=== PATIENT | female | born 1945 | race Asian ===

== ENCOUNTER 2019-10-13 15:59 | Inpatient (IN) | payer OTHER ==
--- NOTE | 2019-10-13 16:22 | PDOC ---
History of Present Illness <May Okeefe - Last Filed: 10/13/19 20:20> - History of Present Illness Initial Comments: HPI: 74yo F with PMH of GERD, osteoporosis, HTN, fatty liver, guillain-barre syndrome in 2016, chronic lumbar radiculopathy presenting with left-sided back pain radiating down her left leg. Patient presented to this ED yesterday with the same complaint. Denies traumatic episode. Has had this same pain for the past three years or so. Movement makes the pain worse. Patient states that she can walk, but is severely limited by pain despite taking medicines prescribed to her (medrol dose john, flexeril, naprosyn). Does not take tylenol due to a fatty liver. Pain was relieved with a recent acupuncture session, but has been so severe that she has trouble performing ADLs at home. Patient resides at home by herself. Denies saddle anesthesia, significant weight loss, history of cancer or IVDU, or urinary/fecal incontinence. No fevers, chills, chest pain, or shortness of breath. PCP: Dr. Ricardo Gilbert (not in our callbook) ROS: Constitutional: no fever, no chills HEENT: no throat pain, no dysphagia Cardiovascular: no chest pain, no palpitations Respiratory: no cough, no shortness of breath Gastrointestinal: no abdominal pain, no nausea Genitourinary: no dysuria, no hematuria Musculoskeletal: +back pain, +L. left pain Skin: no rash, no itching Neurologic: no headache, no weakness PE: General: Awake, alert, and fully oriented, in no acute distress Head: No signs of trauma Eyes: EOMI, sclera anicteric ENT: Moist mucus membranes Neck: Normal ROM, supple Lungs: Lungs clear, Normal breath sounds Cardio: Regular rhythm, S1 and S2 present Abdomen: Soft, nontender Extremities: Distal pulses present SKIN: Warm, Dry, normal turgor Neurologic: Cranial nerves II through XII intact. Normal speech, sensation, coordination. 5/5 strength in BUE, 5/5 strength in RLE, 3/5 strength in LLE likely limited by pain. Antalgic gait. Back: Location of pain in lumbar area, left of midline, no step-offs/deformities /fluctuance; no midline tenderness to palpation; no overlying wound or lesion; positive straight leg test on left, negative straight leg test on right ED Course/MDM: DDX including but not limited to: spinal cord or cauda equina compression, metastatic cancer, spinal epidural abscess, vertebral osteomyelitis, vertebral compression fracture, radiculopathy, spinal stenosis, osteoarthritis, nephrolithiasis, herpes zoster Patient is a bounceback from yesterday. CT on 10/12/2019 showing focal disc bulging with recommended MRI. No red flag back pain symptoms; low suspicion for spinal cord or cauda equina compression Patient lives by herself; she is a significant fall risk and unable to perform ADLs due to her pain CT as reported by radiology 10/12/2019: " EXAM#: TYPE/ EXAM: RESULT: [id number] CT/LUMBAR SPINE CT W/O CONTRAST CT scan lumbar spine performed in the axial plane with multiplanar reformatting without contrast HISTORY: Left sided pain COMPARISON: December 17, 2015 Focal disc bulging left aspect of L2-3 with narrowing of the left neural foramen l and left lateral recess. This was not delineated on prior study of 2015 No compression fracture No listhesis No osteolytic lesion identified No other levels of possible spinal stenosis IMPRESSION: Focal disc bulging left aspect of L2-3 with narrowing of the left neuroforamen and left lateral recess. Recommend MRI for confirmation Reported By: Stas Crouch MD 10/12/19 1238 " Per chart review, patient was discharged yesterday with flexeril, medrol dose john and orthopedics referral. 10/13/19 16:22 CBC WBC 10.1 K/mm3 (4.0-10.0) H 10/13/19 17:46 RBC 4.38 M/mm3 (3.60-5.2) 10/13/19 17:46 Hgb 13.7 GM/dL (10.7-15.3) 10/13/19 17:46 Hct 41.2 % (32.4-45.2) D 10/13/19 17:46 MCV 94.0 fl (80-96) 10/13/19 17:46 MCH 31.2 pg (25.7-33.7) 10/13/19 17:46 MCHC 33.2 g/dl (32.0-36.0) 10/13/19 17:46 RDW 14.2 % (11.6-15.6) 10/13/19 17:46 Plt Count 233 K/MM3 (134-434) D 10/13/19 17:46 MPV 10.7 fl (7.5-11.1) D 10/13/19 17:46 Absolute Neuts (auto) 8.2 K/mm3 (1.5-8.0) H 10/13/19 17:46 Neutrophils % 80.6 % (42.8-82.8) 10/13/19 17:46 Lymphocytes % 16.8 % (8-40) D 10/13/19 17:46 Monocytes % 1.2 % (3.8-10.2) L 10/13/19 17:46 Eosinophils % 0.1 % (0-4.5) D 10/13/19 17:46 Basophils % 1.3 % (0-2.0) 10/13/19 17:46 Nucleated RBC % 0 % (0-0) 10/13/19 17:46 Mild leukocytosis CMP Sodium 138 mmol/L (136-145) 10/13/19 17:46 Potassium 5.5 mmol/L (3.5-5.1) H 10/13/19 17:46 Chloride 106 mmol/L (98-107) 10/13/19 17:46 Carbon Dioxide 26 mmol/L (21-32) 10/13/19 17:46 Anion Gap 6 MMOL/L (8-16) L 10/13/19 17:46 BUN 17.5 mg/dL (7-18) 10/13/19 17:46 Creatinine 0.9 mg/dL (0.55-1.3) 10/13/19 17:46 Est GFR (CKD-EPI)AfAm 71.98 10/13/19 17:46 Est GFR (CKD-EPI)NonAf 62.11 10/13/19 17:46 Random Glucose 167 mg/dL (74-106) H 10/13/19 17:46 Calcium 8.4 mg/dL (8.5-10.1) L 10/13/19 17:46 Total Bilirubin 0.4 mg/dL (0.2-1) 10/13/19 17:46 AST 124 U/L (15-37) H 10/13/19 17:46 ALT 174 U/L (13-61) H 10/13/19 17:46 Alkaline Phosphatase 57 U/L (45-117) 10/13/19 17:46 Total Protein 8.2 g/dl (6.4-8.2) 10/13/19 17:46 Albumin 4.0 g/dl (3.4-5.0) 10/13/19 17:46 K is elevated at 5.5, but the value is mildly hemolyzed. No EKG changes noted Normal Cr Transaminitis present EKG: rate 88, Qtc 454, NSR Patient still in significant pain; 4mg morphine ordered Admission recommended as patient is in severe pain requiring acute inpatient management as indicated by pain unresponsive to non-opioid analgesia and nonpharmacologic treatment; oral, transdermal, submucosal route not appropriate or not sufficient; anticipated titration not appropriate for lower level of care [facility] team microblogged 10/13/19 19:21 Patient received morphine IV, and had a phlebitis reaction up her left arm. No itching, swelling, or throat closing sensation. 50mg diphenhydramine ordered. Discussed case with Dr. Patino who accepted patient for admission under Dr. Rebolledo 10/13/19 19:59 <Krissy Carranza - Last Filed: 10/13/19 20:50> - General Chief Complaint: Pain Stated Complaint: PAIN Time Seen by Provider: 10/13/19 16:20 Past History <May Okeefe - Last Filed: 10/13/19 20:20> - Past Medical History Anemia: No Asthma: No Cancer: No Cardiac Disorders: Yes CVA: No COPD: No CHF: No Dementia: No Diabetes: No GI Disorders: Yes (GERD) Disorders: No HTN: Yes Hypercholesterolemia: Yes Liver Disease: No Seizures: No Thyroid Disease: No - Psycho Social/Smoking Cessation Hx Smoking History: Never smoked Have you smoked in the past 12 months: No Hx Alcohol Use: No Drug/Substance Use Hx: No Substance Use Type: None Hx Substance Use Treatment: No <Krissy Carranza - Last Filed: 10/13/19 20:50> - Past Medical History Allergies/Adverse Reactions: Allergies Allergy/AdvReac Type Severity Reaction Status Date / Time morphine Allergy Verified 10/13/19 20:08 Home Medications: Ambulatory Orders Esomeprazole Mag Trihydrate [Nexium] 40 mg PO DAILY 02/11/14 Gabapentin 300 mg PO BID 02/11/14 Alprazolam 0.25 mg PO PRN 10/12/19 Calcium Carbonate/Vitamin D3 [Calcium 500 + Vit D 200 Caplet] 1 each PO DAILY Cyclobenzaprine HCl 5 mg PO HS #14 tablet 10/12/19 Donepezil HCl [Aricept -] 5 mg PO DAILY 10/12/19 Ibuprofen 400 mg PO PRN 10/12/19 Icosapent Ethyl [Vascepa] 1 gm PO DAILY 10/12/19 Lipase/Protease/Amylase [Aura Dr 36,000 Units Capsule] 1 cap PO DAILY 10/12/19 Magnesium Oxide 400 mg PO DAILY 10/12/19 Methylprednisolone [Medrol Dose John] 4 mg PO ASDIR #21 tablet 10/12/19 Naproxen 375 mg PO BID #20 tablet 10/12/19 *Physical Exam - Vital Signs Last Vital Signs Temp Pulse Resp BP Pulse Ox 98 F 81 18 150/68 96 10/13/19 16:06 10/13/19 19:38 10/13/19 16:06 10/13/19 19:38 10/13/19 19:38 <May Okeefe - Last Filed: 10/13/19 20:20> - Vital Signs Last Vital Signs Temp Pulse Resp BP Pulse Ox 98 F 95 H 18 159/83 99 10/13/19 16:06 10/13/19 16:06 10/13/19 16:06 10/13/19 16:06 10/13/19 16:06 <Krissy Carranza - Last Filed: 10/13/19 20:50> ED Treatment Course - LABORATORY CBC & Chemistry Diagram: 10/13/19 17:46 10/13/19 17:46 - ADDITIONAL ORDERS Additional order review: Laboratory Results 10/13/19 17:46 Sodium 138 Potassium 5.5 H Chloride 106 Carbon Dioxide 26 Anion Gap 6 L BUN 17.5 Creatinine 0.9 Est GFR (CKD-EPI)AfAm 71.98 Est GFR (CKD-EPI)NonAf 62.11 Random Glucose 167 H Calcium 8.4 L Total Bilirubin 0.4 AST 124 H ALT 174 H Alkaline Phosphatase 57 Total Protein 8.2 Albumin 4.0 10/13/19 17:46 RBC 4.38 MCV 94.0 MCHC 33.2 RDW 14.2 MPV 10.7 D Neutrophils % 80.6 Lymphocytes % 16.8 D Monocytes % 1.2 L Eosinophils % 0.1 D Basophils % 1.3 - Medications Given in the ED: ED Medications Discontinued Medications Generic Name Dose Route Start Last Admin Trade Name [place] PRN Reason Stop Dose Admin Diphenhydramine HCl 50 mg 10/13/19 19:58 10/13/19 20:00 Benadryl Injection - IVPUSH 10/13/19 19:59 50 mg ONCE ONE Administration Lidocaine 1 patch 10/13/19 17:12 10/13/19 17:44 Lidoderm Patch - TP 10/13/19 17:13 1 patch ONCE ONE Administration Morphine Sulfate 4 mg 10/13/19 19:22 10/13/19 19:55 Morphine Injection - IVPUSH 10/13/19 19:23 4 mg ONCE ONE Administration Oxycodone HCl 10 mg 10/13/19 17:11 10/13/19 17:45 Roxicodone - PO 10/13/19 17:12 10 mg ONCE ONE Administration <May Okeefe - Last Filed: 10/13/19 20:20> - LABORATORY CBC & Chemistry Diagram: 10/13/19 17:46 10/13/19 17:46 <Krissy Carranza - Last Filed: 10/13/19 20:50> Discharge <May Okeefe - Last Filed: 10/13/19 20:20> - Discharge Information Problems reviewed: Yes - Admission Yes <Krissy Carranza - Last Filed: 10/13/19 20:50> - Discharge Information Clinical Impression/Diagnosis: Intractable back pain Condition: Guarded
[2019-10-13] MEDS ORDERED: oxyCODONE HCL 5 MG TABLET PO ONE (17:11)
[2019-10-13] MEDS ORDERED: LIDOCAINE 5% TOPICAL PATCH TP ONE (17:12)
--- NOTE | 2019-10-13 17:23 | PDOC ---
Documentation entered by Elodia Arango SCRIBE, acting as scribe for May Okeefe MD. May Okeefe MD: This documentation has been prepared by the Conchita valle Sammi, SCRIBE, under my direction and personally reviewed by me in its entirety. I confirm that the documentation accurately reflects all work, treatment, procedures, and medical decision making performed by me. Attending Attestation - Resident Resident Name: Krissy Carranza - ED Attending Attestation I have performed the following: I have examined & evaluated the patient, The case was reviewed & discussed with the resident, I agree w/resident's findings & plan, Exceptions are as noted - HPI HPI: 10/13/19 17:19 10/13/19 17:22 74-year-old female returns emergency department department with continued left- sided back pain rating down her leg. She was here yesterday for the same complaint and at that time had a CT of her spinal lumbar that showed bulging disc at L3 and L4. She presents today with difficulty walking due to the pain - Physicial Exam PE: 10/13/19 17:41 Petite alert 74-year-old female presents with left back pain radiating down her leg Head normocephalic atraumatic Neck supple Lungs clear to auscultation bilaterally CVS regular rate and rhythm S1-S2 Abdomen flat, nontender Extremities no deformity, no erythema Musculoskeletal LEFT low back pain radiating down her leg neuro alert and conversant,moving her arms and legs but L leg raise is painful - Medical Decision Making 10/13/19 17:56 IMP: Lumbar radiculopathy 10/13/19 18:01 10/13/19 18:09 ct lumbar : focal disc bulging Left aspect of L2-3 w narrowing of the LEFT neuroforamina and left lateral recess 10/13/19 18:12 10/13/19 18:13 plan pain meds/reassess 10/13/19 18:44 Labs reviewed and CBC is essentially unremarkable Chemistries show potassium elevated 5.5, glucose elevated 167 - her AST is 124 , ALT = 174 10/13/19 20:11 pt unable to ambulate due to pain imp lumbar radiculopathy/intractable pain plan admit for pain mgmt
[2019-10-13] MEDS ORDERED: LIDOCAINE 5% TOPICAL PATCH ONE (17:25)
[2019-10-13] MEDS ORDERED: oxyCODONE HCL 5 MG TABLET ONE (17:27)
[2019-10-13 17:55] LABS: BASO % 1.3 % (0-2.0); EOS % 0.1 % (0-4.5); HEMATOCRIT 41.2 % (32.4-45.2); HEMOGLOBIN 13.7 GM/dL (10.7-15.3); LYMPH % 16.8 % (8-40); MCH 31.2 pg (25.7-33.7); MCHC 33.2 g/dl (32.0-36.0); MEAN PLT VOLUME 10.7 fl (7.5-11.1); MONO % 1.2 % (3.8-10.2); NEUT % 80.6 % (42.8-82.8); PLATELET COUNT 233 K/MM3 (134-434); RBC 4.38 M/mm3 (3.60-5.2); RDW 14.2 % (11.6-15.6); WHITE BLOOD COUNT 10.1 K/mm3 (4.0-10.0)
[2019-10-13 18:30] LABS: BILIRUBIN,TOTAL 0.4 mg/dL (0.2-1); BLOOD UREA NITROGEN 17.5 mg/dL (7-18); CALCIUM 8.4 mg/dL (8.5-10.1); CREATININE 0.9 mg/dL (0.55-1.3); TOT PROT 8.2 g/dl (6.4-8.2)
[2019-10-13 19:09] LABS: POTASSIUM 5.5 mmol/L (3.5-5.1)
[2019-10-13] MEDS ORDERED: morphine CARPU-JECT 4 MG/1 ML DISP.SYRIN IVPUSH ONE (19:22)
[2019-10-13] MEDS ORDERED: morphine SULFATE 4 MG/ML VIAL ONE (19:34)
--- NOTE | 2019-10-13 20:54 | HP ---
CHIEF COMPLAINT: acute on chronic back pain PCP: Dr Gilbert HISTORY OF PRESENT ILLNESS: 74 yo amharic speaking female F with PMH of chronic lumbar radiculopathy, Guillain-barre syndrome in 2016, Osteoporosis, HTN, Fatty Liver, and GERD presenting to the ED with sharp left sided back pain . She denies trauma and states that the pain started Monday while sitting on the bus. The pain is worse with motion. When asked about radiation patient denied however was motioning as if describing radiation when describing her pain. The patient is able to ambulate but is limited by her pain.The patient presented to the ED yesterday with the same symptoms and states that the medications prescribed to her are not helping (Medrol dose john, flexeril, naprosyn). Pain was relieved with a recent acupuncture session, but has been so severe that she has trouble performing ADLs at home. Patient lives alone. Denies saddle anesthesia, significant weight loss, history of cancer or IVDU, or urinary/fecal incontinence, fevers, chills, chest pain, or shortness of breath, nausea/ vomiting. ER course was notable for: (1)VSS, CBC with mild leukocytosis 10.1, CMP with AST 124, ALT 174 (2) morphine (with phlebitis on initial push. benadryl given after), lidocaine, oxy 10 (3)EKG NSR Recent Travel: denies PAST MEDICAL HISTORY: as above PAST SURGICAL HISTORY: none Social History: Smoking:denies Alcohol: denies Drugs: denies Allergies morphine Allergy (Verified 10/13/19 20:08) HOME MEDICATIONS: Home Medications Medication Instructions Recorded Esomeprazole Mag Trihydrate 40 mg PO DAILY 02/11/14 [Nexium] Gabapentin 300 mg PO BID 02/11/14 Alprazolam 0.25 mg PO PRN 10/12/19 Calcium Carbonate/Vitamin D3 1 each PO DAILY 10/12/19 [Calcium 500 + Vit D 200 Caplet] Cyclobenzaprine HCl 5 mg PO HS #14 tablet 10/12/19 Donepezil HCl [Aricept -] 5 mg PO DAILY 10/12/19 Ibuprofen 400 mg PO PRN 10/12/19 Icosapent Ethyl [Vascepa] 1 gm PO DAILY 10/12/19 Lipase/Protease/Amylase [Aura Campbell 1 cap PO DAILY 10/12/19 36,000 Units Capsule] Magnesium Oxide 400 mg PO DAILY 10/12/19 Methylprednisolone [Medrol Dose 4 mg PO ASDIR #21 tablet 10/12/19 John] Naproxen 375 mg PO BID #20 tablet 10/12/19 REVIEW OF SYSTEMS CONSTITUTIONAL: Absent: fever, chills, diaphoresis, generalized weakness, malaise, loss of appetite, weight change HEENT: Absent: rhinorrhea, nasal congestion, throat pain, throat swelling, difficulty swallowing, mouth swelling, ear pain, eye pain, visual changes CARDIOVASCULAR: Absent: chest pain, syncope, palpitations, irregular heart rate, lightheadedness , peripheral edema RESPIRATORY: Absent: cough, shortness of breath, dyspnea with exertion, orthopnea, wheezing, stridor, hemoptysis GASTROINTESTINAL: Absent: abdominal pain, abdominal distension, nausea, vomiting, diarrhea, constipation, melena, hematochezia GENITOURINARY: Absent: dysuria, frequency, urgency, hesitancy, hematuria, flank pain, genital pain MUSCULOSKELETAL: back pain Absent: myalgia, arthralgia, joint swelling,, neck pain SKIN: rash Absent: itching, pallor HEMATOLOGIC/IMMUNOLOGIC: Absent: easy bleeding, easy bruising, lymphadenopathy, frequent infections ENDOCRINE: Absent: unexplained weight gain, unexplained weight loss, heat intolerance, cold intolerance NEUROLOGIC: Absent: headache, focal weakness or paresthesias, dizziness, unsteady gait, seizure, mental status changes, bladder or bowel incontinence PSYCHIATRIC: Absent: anxiety, depression, suicidal or homicidal ideation, hallucinations. PHYSICAL EXAMINATION Vital Signs - 24 hr 10/13/19 10/13/19 10/13/19 16:06 19:38 20:51 Temperature 98 F 98.2 F Pulse Rate 95 H Pulse Rate [ 81 82 Left Radial] Respiratory 18 18 Rate Blood Pressure 159/83 Blood Pressure 150/68 146/70 [Right Arm] O2 Sat by Pulse 99 96 95 Oximetry (%) GENERAL: Awake, alert, and fully oriented, in mild distress. HEAD: Normal with no signs of trauma. EYES: Pupils equal, round and reactive to light, extraocular movements intact, sclera anicteric, conjunctiva clear. No lid lag. EARS, NOSE, THROAT: oropharynx clear without exudates. Moist mucous membranes. NECK: Normal range of motion, supple without lymphadenopathy, JVD, or masses. LUNGS: Breath sounds equal, clear to auscultation bilaterally. No wheezes, and no crackles. No accessory muscle use. HEART: Regular rate and rhythm, normal S1 and S2 without murmur, rub or gallop. ABDOMEN: Soft, nontender, not distended, normoactive bowel sounds, no guarding, no rebound, no masses. No hepatomegaly or splenomegaly. MUSCULOSKELETAL: Back: Location of pain in lumbar area, no step-offs/deformities /fluctuance; no midline tenderness to palpation; no overlying wound or lesion; positive straight leg test on left UPPER EXTREMITIES: 2+ pulses, warm, well-perfused. No cyanosis. No clubbing. No peripheral edema. LOWER EXTREMITIES: 2+ pulses, warm, well-perfused. No calf tenderness. No peripheral edema. NEUROLOGICAL: Cranial nerves II through XII intact. Normal speech, sensation, coordination. 5/5 strength in BUE, 5/5 strength in RLE, 4/5 strength in LLE likely limited by pain. Antalgic gait. PSYCHIATRIC: Cooperative. Good eye contact. Appropriate mood and affect. SKIN: phlebitis s/p morphine IVpush on left Laboratory Results - last 24 hr 10/13/19 10/13/19 17:46 17:46 WBC 10.1 H RBC 4.38 Hgb 13.7 Hct 41.2 D MCV 94.0 MCH 31.2 MCHC 33.2 RDW 14.2 Plt Count 233 D MPV 10.7 D Absolute Neuts (auto) 8.2 H Neutrophils % 80.6 Lymphocytes % 16.8 D Monocytes % 1.2 L Eosinophils % 0.1 D Basophils % 1.3 Nucleated RBC % 0 Sodium 138 Potassium 5.5 H Chloride 106 Carbon Dioxide 26 Anion Gap 6 L BUN 17.5 Creatinine 0.9 Est GFR (CKD-EPI)AfAm 71.98 Est GFR (CKD-EPI)NonAf 62.11 Random Glucose 167 H Calcium 8.4 L Total Bilirubin 0.4 AST 124 H ALT 174 H Alkaline Phosphatase 57 Total Protein 8.[address]/LUMBAR SPINE CT W/O CONTRAST CT scan lumbar spine performed in the axial plane with multiplanar reformatting without contrast HISTORY: Left sided pain COMPARISON: December 17, 2015 Focal disc bulging left aspect of L2-3 with narrowing of the left neural foramen l and left lateral recess. This was not delineated on prior study of 2016 No compression fracture No listhesis No osteolytic lesion identified No other levels of possible spinal stenosis IMPRESSION: Focal disc bulging left aspect of L2-3 with narrowing of the left neuroforamen and left lateral recess. Recommend MRI for confirmation Reported By : Stas Crouch MD 10/12/19 1238 " ASSESSMENT/PLAN: 74 yo amharic speaking female F with PMH of chronic lumbar radiculopathy, Guillain-barre syndrome in 2016, Osteoporosis, HTN, Fatty Liver, and GERD presenting to the ED with sharp left sided back pain Intractable back pain poss due to radiculopathy in the setting of PE findings ct findings above + straight leg raise test on the Left pain worse with ambulation Pt was discharged on flexeril, toradol will continue management with addition of lidocaine patch Neurosugery consult Dr Lorenzo MRI of the lumbar region w/and without contrast to rule out other pathology neurochecks Q4h monitor urine output type and screen , PT/INR in case neuro intervention resume gabapentin for neuropathy Phlebitis s/p morphine IV push on left arm, erythema along venous tracts,slight warmth no pain or tenderness 1 dose of benadryl given redness improved s/p benadryl monitor for increasing pain, tenderness, tightness Abnormal LFTs with hx of fatty liver chronic no clear source identified from previous work up concern for hemochromatosis was documented with outpatient w/u Pt didnt provide information on results MRCP, Abdomen CT, HIDA performed with findings but no clear explanation for abnormal LFTS hep B&C were negative HTN resume home meds once med rec Gerd resume home meds once med rec FEN no standing fluid. encourage po intake monitor lytes regular diet DVT SCDs admit to med-surge Visit type - Emergency Visit Emergency Visit: Yes ED Registration Date: 10/13/19 Care time: The patient presented to the Emergency Department on the above date and was hospitalized for further evaluation of their emergent condition. - New Patient This patient is new to me today: No - Critical Care Critical Care patient: No ATTENDING PHYSICIAN STATEMENT I saw and evaluated the patient. I reviewed the resident's note and discussed the case with the resident. I agree with the resident's findings and plan as documented. SUBJECTIVE: OBJECTIVE: ASSESSMENT AND PLAN:
[2019-10-13] MEDS ORDERED: NAPROXEN 375 MG TABLET PO SCH (22:00)
[2019-10-13] MEDS ORDERED: LIDOCAINE PATCH REMOVAL MC SCH (22:00)
[2019-10-13] MEDS ORDERED: CYCLOBENZAPRINE HCL 10 MG TABLET (FP) ONE (22:33)
[2019-10-13] MEDS ORDERED: NAPROXEN 500 MG TABLET ONE (22:34)
[2019-10-13] MEDS: CYCLOBENZAPRINE HCL 5 MG TABLET PO SCH (22:49)
[2019-10-14 00:02] VITALS: BMI 27.3
--- NOTE | 2019-10-14 00:48 | PN ---
Teaching Attending Note Name of Resident: Taylor Patino ATTENDING PHYSICIAN STATEMENT I saw and evaluated the patient. I reviewed the resident's note and discussed the case with the resident. I agree with the resident's findings and plan as documented. SUBJECTIVE: 74-year-old woman with a history of GERD, osteoporosis, hypertension, chronic lumbar radiculopathy presents with intractable back pain for 3 days. Pain is radiating down to her left leg and has been unbearable and patient is unable to ambulate or stand. Has been taking gabapentin which her PCP prescribed her and has not not had much relief. Denied any loss of sensation to her lower extremities, bowel incontinence, bladder incontinence. OBJECTIVE: Last Vital Signs Temp Pulse Resp BP Pulse Ox 97.9 F 74 20 154/88 97 10/13/19 23:57 10/13/19 23:57 10/14/19 00:29 10/13/19 23:57 10/14/19 00:29 GENERAL: Well developed, well nourished. Awake and alert. Appears to be in visible pain HEENT: Normocephalic, atraumatic. PERRLA, EOMI. No conjunctival pallor. Sclera are non- icteric. Moist mucous membranes. Oropharynx is clear. NECK: Supple. Full ROM. No JVD. Carotid pulses 2+ and symmetric, without bruits. No thyromegaly. No lymphadenopathy. CARDIOVASCULAR: Regular rate and rhythm. No murmurs, rubs, or gallops. Distal pulses are 2+ and symmetric. PULMONARY: No evidence of respiratory distress. Lungs clear to auscultation bilaterally. No wheezing, rales or rhonchi. ABDOMINAL: Soft. Non-tender. Non-distended. No rebound or guarding. No organomegaly. Normoactive bowel sounds. MUSCULOSKELETAL Normal range of motion at all joints. No bony deformities or tenderness. No CVA tenderness. EXTREMITIES: No cyanosis. No clubbing. No edema. No calf tenderness. SKIN: Warm and dry. Normal capillary refill. No rashes. No jaundice. NEUROLOGICAL: Positive left lower extremity straight leg raise test PSYCHIATRIC: Cooperative. Good eye contact. Appropriate mood and affect. Abnormal Lab Results 10/13/19 10/13/19 17:46 17:46 WBC 10.1 H Absolute Neuts (auto) 8.2 H Monocytes % 1.2 L Potassium 5.5 H Anion Gap 6 L Random Glucose 167 H Calcium 8.4 L AST 124 H ALT 174 H Imaging studies reviewed CT of the lumbar spine, CT without contrastfocal disc bulging left aspect of L2 -3 with narrowing of the left neuroforaminal and left lateral recess. Recommend MRI for confirmation. No compression fracture. No osteolytic lesion identified. ASSESSMENT AND PLAN: 74-year-old woman with intractable back pain and noted to have L2-3 focal disc bulging on left side, left-sided radiculopathy, sciatica. Admit to MedSur Pain control with Tylenol IV as neededpossible adverse reaction to morphine Bedrest MRI of the lumbar spine with and without contrast Neurosurgical evaluation for possible surgical intervention #GERD Protonix 40 mg p.o. daily #Hypertension Low-sodium diet Begin amlodipine 5 mg p.o. daily SCDs for DVT prophylaxis
[2019-10-14] MEDS ORDERED: ACETAMINOPHEN 1000 MG/100 ML VIAL (NON FORMULARY) IVPB PRN (03:50)
--- NOTE | 2019-10-14 07:56 | PN ---
Progress Note (short form) - Note Progress Note: NEUROSURGERY CONSULT DICTATED Chart reviewed Prior (2016) lumbar CT and 10-12-19 CT LS spine reviewed Pt examined h/o chronic lumbar radiculopathy, Guillain-barre syndrome, Osteoporosis, HTN, Fatty Liver, and GERD c/o sharp left sided back pain . She denies trauma/falls and pain started Monday while sitting on the bus. The pain is worse with motion. Medications prescribed 3 days ago did not help (Medrol dose mitchell, flexeril, naprosyn). Denies saddle anesthesia, significant weight loss, urinary/ bowel incontinence, fever, chill. No systemic malignancy. Interviewed with [facility]. PE: AF, VSS General- unremarkable CN- normal; Motor- L IP/Quad 4- pain limited; o/w 4+-5; Sensation- slight numbness L L3; DTR- 1+ K 5.5, LFT's mildly elevated CT LS- mild spondylosis throughout, sacralized L5 segment, L L2-3 foramenal disc protrusion with moderate stenosis (worse since 2015); broad-based L3-4 disc bulge with mild-moderate stenosis Increased L L2-3 formanenal HNP with L LBP and L3 radiculopathy PO medrol Neurontin PT Ls spine MRI If persistent pain consider EPSI
[2019-10-14] MEDS: KETOROLAC TROMETHAMINE 15 MG/ML VIAL IVPUSH PRN ×3 (08:12→21:13)
[2019-10-14] MEDS: LIDOCAINE PATCH REMOVAL MC SCH ×2 (08:46→21:09)
[2019-10-14 08:50] LABS: INR 0.97 (0.83-1.09); PROTHROMBIN TIME (PATIENT) 11.4 SEC (9.7-13.0)
[2019-10-14 08:53] LABS: ACTIVATED PTT 28.3 SECONDS (25.2-36.5)
[2019-10-14] MEDS: LIDOCAINE 5% TOPICAL PATCH TP SCH (09:13)
[2019-10-14] MEDS: GABAPENTIN 300 MG CAPSULE PO SCH ×2 (09:13→21:09)
[2019-10-14] MEDS: DONEPEZIL HCL 5 MG TABLET (FP) PO SCH (09:13)
--- NOTE | 2019-10-14 09:43 | EKG ---
Test Reason : Blood Pressure : / mmHG Vent. Rate : 088 BPM Atrial Rate : 088 BPM P-R Int : 150 ms QRS Dur : 078 ms QT Int : 376 ms P-R-T Axes : 067 023 047 degrees QTc Int : 454 ms NORMAL SINUS RHYTHM POSSIBLE LEFT ATRIAL ENLARGEMENT BORDERLINE ECG WHEN COMPARED WITH ECG OF 22-DEC-2015 18:46, NO SIGNIFICANT CHANGE WAS FOUND Confirmed by CADENCE CARBAJAL MD ([id number]) on 10/14/2019 9:42:41 AM Referred By: Confirmed By:CADENCE CARBAJAL MD
[2019-10-14 09:54] LABS: ALBUMIN 3.8 g/dl (3.4-5.0); BILIRUBIN,TOTAL 0.4 mg/dL (0.2-1); BLOOD UREA NITROGEN 24.8 mg/dL (7-18); CALCIUM 8.3 mg/dL (8.5-10.1); CREATININE 0.7 mg/dL (0.55-1.3); MAGNESIUM 2.5 mg/dL (1.8-2.4); PHOSPHOROUS 2.5 mg/dL (2.5-4.9); POTASSIUM 4.1 mmol/L (3.5-5.1); TOT PROT 7.3 g/dl (6.4-8.2)
[2019-10-14] MEDS ORDERED: ENOXAPARIN NA (PORCINE) 40 MG/0.4 ML DISP.SYRIN SQ SCH (10:00)
[2019-10-14] MEDS ORDERED: predniSONE 5 MG TABLET (UD) PO SCH (10:00)
[2019-10-14] MEDS: PANTOPRAZOLE 40 MG TABLET PO SCH (10:49)
[2019-10-14] MEDS ORDERED: PT OWN MED DRAWER 7, Y5N ONE (12:39)
[2019-10-14] MEDS: methylPREDNISolone 4 MG TABLET PO SCH ×4 (12:41→21:09)
[2019-10-14 13:14] LABS: EOS % 0.3 % (0-4.5); MCH 31.6 pg (25.7-33.7); MCHC 33.8 g/dl (32.0-36.0)
--- NOTE | 2019-10-14 13:14 | CONS ---
DATE OF CONSULTATION: 10/14/2019 REQUESTING PHYSICIAN: Dr. Patino W[employer] CONSERVATION SPECIALIST: Maldonado Melton MD, neurosurgery CHIEF COMPLAINT: Lower back pain, left L2-3 radiculopathy. HISTORY: Patient is a 74-year-old right-handed female with a history of hypertension, Guillain-[place] syndrome, chronic lower back pain, lumbar radiculopathy, osteoporosis, and hypertension as well as fatty liver and gastroesophageal reflux disease who complains of increasing left-sided lower back pain. Pain radiates down to her left hip and thigh. It started when she was sitting in a bus the other day. Pain is worse with walking and standing up. She could barely stand up straight. She was in the emergency room 2 days ago and was given Medrol Dosepak, Flexeril, and Naproxen. She denies any saddle anesthesia or loss of bowel or bladder control. She has no fevers or chills or any systemic malignancy. The patient was interviewed with the [facility] for translation. PAST MEDICAL HISTORY: Significant for fatty liver disease, Guillain-[place], lumbar radiculopathy, osteoporosis, hypertension, gastroesophageal reflux disease. CURRENT MEDICATIONS: Include Lidoderm patch, Neurontin, cyclobenzaprine, Toradol, Aricept, and Protonix. ALLERGIES: MORPHINE. SOCIAL HISTORY: She does not smoke or drink. She lives at home. She is French speaking. REVIEW OF SYSTEMS: Otherwise negative for major constitutional, head, neck, cardiovascular, pulmonary, gastrointestinal, genitourinary, endocrinological, neurological, or psychological problems except for the above. PHYSICAL EXAMINATION: General: She is awake and alert. Vital Signs: Temperature 98.1, blood pressure 139/77 with a pulse rate of 82, O2 saturation 97% on room air. HEENT: Shows her to be normocephalic, atraumatic, anicteric. Neck: Supple with no carotid bruits. Coronary: Demonstrates regular rhythm. Lungs: Clear bilaterally. Abdomen: Benign. Extremities: Show no signs of DVT. Neurologic: She is awake and alert. She is French speaking. Cranial nerve examination is intact 2-12. Motor examination shows 4+/5 to 5/5 with the exception of left iliopsoas and quadriceps, which are 4- limited by pain. Sensory examination demonstrates numbness in the left L3 distribution. Deep tendon reflexes are 1+ throughout. There is no pathological or long-tract sign. She has a positive straight leg raise on the left side about 40 degrees. She has left sciatic notch tenderness and left paraspinal muscle spasm. LABORATORY EXAMINATION: Shows a white blood cell count of 10.1, hemoglobin 13.7 , platelet count 233,000, INR 0.97, PT 28.3. Serum sodium 140, potassium 4.1, BUN 25, creatinine 0.7. A CT scan of the lumbar spine demonstrated multilevel lumbar mild degenerative disk disease and mild spondylosis. There is a broad-based L3-4 disk bulge with mild central stenosis and lateral recess narrowing. There is a left L2-3 foraminal disk protrusion with left L3 and L2 nerve root impingement as well as left lateral recess stenosis and foraminal stenosis, which is moderate in nature at least. The foraminal disk herniation is worse compared to a CT scan from 2016. IMPRESSION: 1. Increase left L2-3 foraminal disk protrusion with foraminal and lateral recess stenosis resulting in left L2-3 radiculopathy. 2. Fatty liver disease. 3. History of Guillain-[place] syndrome. 4. Hypertension. 5. Gastroesophageal reflux disease. RECOMMENDATIONS: Patient presents with recurrent lower back pain and left lower extremity radiculopathy. She complains of increasing pain since 3 days ago without any recent trauma or fall. She has slight weakness and numbness of the proximal left lower extremity. Because of her neurological symptoms, an MRI of the lumbar spine is recommended and has been ordered by report already. She was put on Neurontin earlier, and she will continue that. I also took the liberty of putting her on the Medrol p.o. to continue her prior Medrol Dosepak, which hopefully could help reduce her pain somewhat. If persistent pain, pain management evaluation with an epidural steroid injection could be helpful. Surgery is resolved for intractable pain despite medical treatment. The above was discussed with the patient with the use of a translation service on the phone. MALDONADO MELTON M.D. [id number] MTDD
[2019-10-14 13:16] LABS: BASO % 0.6 % (0-2.0); HEMATOCRIT 38.7 % (32.4-45.2); HEMOGLOBIN 13.1 GM/dL (10.7-15.3); LYMPH % 44.5 % (8-40); MEAN CELL VOLUME 93.3 fl (80-96); MEAN PLT VOLUME 9.4 fl (7.5-11.1); NEUT % 50.6 % (42.8-82.8); PLATELET COUNT 190 K/MM3 (134-434); RBC 4.14 M/mm3 (3.60-5.2)
[2019-10-14] MEDS: CALCIUM 500MG/VIT-D 200 UNITS COMBO TABLET (FP) PO SCH (15:14)
--- NOTE | 2019-10-14 16:33 | PN ---
Addendum entered and electronically signed by Oneal Santos, RESIDENT 10/14/19 16:50: Dr Stearns (ortho) consulted for the LS pain. Recs appreciated. Original Note: <Oneal Santos - Last Filed: 10/14/19 16:39> Physical Exam: SUBJECTIVE: Patient seen and examined at bedside. Pt in equisite pain 10/10. No fevers, chills. Toradol 15mg given. OBJECTIVE: Vital Signs Period Temp Pulse Resp BP Sys/Tadeo Pulse Ox Last 24 Hr 97.9 F-98.2 F 74-82 18-20 137-154/68-88 95-97 GENERAL: The patient is awake, alert in acute distress. HEAD: Normal with no signs of trauma. LUNGS: Breath sounds equal, clear to auscultation bilaterally, no wheezes, no crackles, no accessory muscle use. HEART: Regular rate and rhythm, S1, S2 without murmur, rub or gallop. ABDOMEN: Soft, nontender, nondistended, normoactive bowel sounds, no guarding, no rebound, no hepatosplenomegaly, no masses. EXTREMITIES: 2+ pulses, warm, well-perfused, no edema. NEUROLOGICAL:SLR positive Left leg, ttp left back, 2+pulses b/l, ROM impaired not due to weakness only to pain. Laboratory Results - last 24 hr 10/13/19 10/13/19 10/14/19 17:46 17:46 07:45 WBC 10.1 H 9.0 RBC 4.38 4.14 Hgb 13.7 13.1 Hct 41.2 D 38.7 MCV 94.0 93.3 MCH 31.2 31.6 MCHC 33.2 33.8 RDW 14.2 14.0 Plt Count 233 D 190 MPV 10.7 D 9.4 D Absolute Neuts (auto) 8.2 H 4.5 Neutrophils % 80.6 50.6 D Lymphocytes % 16.8 D 44.5 H D Monocytes % 1.2 L 4.0 D Eosinophils % 0.1 D 0.3 D Basophils % 1.3 0.6 Nucleated RBC % 0 0 PT with INR INR PTT (Actin FS) Sodium 138 Potassium 5.5 H Chloride 106 Carbon Dioxide 26 Anion Gap 6 L BUN 17.5 Creatinine 0.9 Est GFR (CKD-EPI)AfAm 71.98 Est GFR (CKD-EPI)NonAf 62.11 Random Glucose 167 H Calcium 8.4 L Phosphorus Magnesium Total Bilirubin 0.4 AST 124 H ALT 174 H Alkaline Phosphatase 57 Total Protein 8.2 Albumin 4.0 Blood Type Antibody Screen 10/14/19 10/14/19 10/14/19 07:45 07:45 07:45 WBC RBC Hgb Hct MCV MCH MCHC RDW Plt Count MPV Absolute Neuts (auto) Neutrophils % Lymphocytes % Monocytes % Eosinophils % Basophils % Nucleated RBC % PT with INR 11.40 INR 0.97 PTT (Actin FS) 28.3 Sodium 140 Potassium 4.1 Chloride 108 H Carbon Dioxide 27 Anion Gap 6 L BUN 24.8 H Creatinine 0.7 Est GFR (CKD-EPI)AfAm 97.54 Est GFR (CKD-EPI)NonAf 84.16 Random Glucose 87 Calcium 8.3 L Phosphorus 2.5 Magnesium 2.5 H Total Bilirubin 0.4 AST 120 H ALT 174 H Alkaline Phosphatase 54 Total Protein 7.3 Albumin 3.8 Blood Type B POSITIVE Antibody Screen Negative Active Medications Generic Name Dose Route Start Last Admin Trade Name Freq PRN Reason Stop Dose Admin Alprazolam 0.25 mg 10/14/19 15:15 Xanax - PO PRN PRN ANXIETY Calcium Carbonate/Cholecalciferol 1 tab 10/14/19 15:15 10/14/19 15:14 Os-Alexander 500+D - PO 1 tab DAILY MARY KATE Administration Cyclobenzaprine HCl 5 mg 10/13/19 22:00 10/13/19 22:49 Cyclobenzaprine Hcl PO 5 mg HS MARY KATE Administration Donepezil HCl 5 mg 10/14/19 10:00 10/14/19 09:13 Aricept - PO 5 mg DAILY MARY KATE Administration Gabapentin 300 mg 10/14/19 10:00 10/14/19 09:13 Neurontin - PO 300 mg BID MARY KATE Administration Ibuprofen 400 mg 10/14/19 15:15 Motrin - PO PRN MARY KATE Ketorolac Tromethamine 15 mg 10/14/19 06:12 10/14/19 14:54 Toradol Injection - IVPUSH 10/19/19 06:11 15 mg Q6H PRN Administration PAIN LEVEL 6-10 Lidocaine 1 patch 10/14/19 10:00 10/14/19 09:13 Lidoderm Patch - TP 1 patch DAILY MARY KATE Administration Magnesium Oxide 400 mg 10/15/19 10:00 Mag-Ox - PO DAILY [facility] Methylprednisolone 4 mg 10/14/19 10:30 10/14/19 14:55 Medrol - PO 4 mg QID MARY KATE Administration Miscellaneous 1 each 10/13/19 22:00 10/14/19 08:46 Lidoderm Patch Removal MC Not Given DAILY@2200 [facility] Non-Formulary Medication 1 gm 10/15/19 10:00 Icosapent Ethyl [Vascepa] PO DAILY [facility] Pancrelipase 1 cap 10/15/19 08:00 Creon 36,000 Units Capsule PO DAILY@0800 [facility] Pantoprazole Sodium 40 mg 10/14/19 10:30 10/14/19 10:49 Protonix - PO 40 mg DAILY MARY KATE Administration ASSESSMENT/PLAN: CT/LUMBAR SPINE CT W/O CONTRAST CT scan lumbar spine performed in the axial plane with multiplanar reformatting without contrast HISTORY: Left sided pain COMPARISON: December 17, 2015 Focal disc bulging left aspect of L2-3 with narrowing of the left neural foramen l and left lateral recess. This was not delineated on prior study of 2016 No compression fracture No listhesis No osteolytic lesion identified No other levels of possible spinal stenosis IMPRESSION: Focal disc bulging left aspect of L2-3 with narrowing of the left neuroforamen and left lateral recess. Recommend MRI for confirmation Reported By : Stas Crouch MD 10/12/19 1238 " ASSESSMENT/PLAN: 74 yo greenlandic speaking female F with PMH of chronic lumbar radiculopathy, Guillain-barre syndrome in 2016, Osteoporosis, HTN, Fatty Liver, and GERD presenting to the ED with sharp left sided back pain Intractable back pain poss due to radiculopathy vs prior GBS vs ITB syndrome - ct findings above + straight leg raise test on the Left - lidocaine patch - Neurosugery consult Dr Lorenzo not intervening surgically at this time. Steroids 4mg QID, 40protonix daily, and PT - will do epidural injection if pt is refractory pain mgmt. MRI of the lumbar region w/and without contrast to rule out other pathology PT eval was limited due to pain will have to wait until pain is controlled more for affective rehab. resume gabapentin for neuropathy Abnormal LFTs with hx of fatty liver chronic no clear source identified from previous work up HTN resume home meds Gerd resume home meds FEN no standing fluid. encourage po intake monitor lytes regular diet DVT 5K TID admit to med-surge Visit type - Emergency Visit Emergency Visit: Yes ED Registration Date: 10/13/19 Care time: The patient presented to the Emergency Department on the above date and was hospitalized for further evaluation of their emergent condition. - New Patient This patient is new to me today: Yes Date on this admission: 10/14/19 - Critical Care Critical Care patient: No - Discharge Referral Referred to [facility] Med P.C.: No ATTENDING PHYSICIAN STATEMENT I saw and evaluated the patient. I reviewed the resident's note and discussed the case with the resident. I agree with the resident's findings and plan as documented. SUBJECTIVE: OBJECTIVE: ASSESSMENT AND PLAN: <Roni Rush - Last Filed: 10/14/19 17:08> Physical Exam: Seen and examined, agree with attending note from overnight. In summation, the patient was examined by myself and the resident team. Actually has a negative bilateral straight leg raise with no radicular symptoms noted. 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 Orthopedic surgery will be consulted, I will adjust her pain control. There absolutely could be a component of low back pain implicated, and the CT results are absolutely noted, she has a distribution that would be atypical for a pure lumbar radiculopathy and she actually denies rishi back pain. Continue to monitor on the floor, full code ATTENDING PHYSICIAN STATEMENT I saw and evaluated the patient. I reviewed the resident's note and discussed the case with the resident. I agree with the resident's findings and plan as documented. SUBJECTIVE: OBJECTIVE: ASSESSMENT AND PLAN:
[2019-10-14] MEDS: CYCLOBENZAPRINE HCL 5 MG TABLET PO SCH (21:09)
[2019-10-15] MEDS: KETOROLAC TROMETHAMINE 15 MG/ML VIAL IVPUSH PRN (03:33)
--- NOTE | 2019-10-15 07:40 | PN ---
Progress Note (short form) - Note Progress Note: NEUROSURGERY Left sided back pain worse with motion. Denies saddle anesthesia, significant weight loss, urinary/bowel incontinence, fever, chill. No systemic malignancy. Pain severe despite medications PE: AF, VSS General- unremarkable CN- normal; Motor- L IP/Quad 4- pain limited; o/w 4+-5; Sensation- slight numbness L L3; DTR- 1+ K 5.5, LFT's mildly elevated CT LS- mild spondylosis throughout, sacralized L5 segment, L L2-3 foramenal disc protrusion with moderate stenosis (worse since 2016); broad-based L3-4 disc bulge with mild-moderate stenosis MRI- L T11-12 paracentral disc protrusion; L L2-3 paracentral HNP into neuroforamen with lateral recess and foramenal stenosis, R > L L3-4 disc bulge with mild-moderate stenosis; sacralized L5 segment Increased L L2-3 formanenal HNP with L LBP and L3 radiculopathy Trial of iv decadron Neurontin PT Consider pain management for EPSI
[2019-10-15] MEDS ORDERED: PT OWN MED DRAWER 7, Y5N ONE ×4 (08:58→15:14)
[2019-10-15] MEDS: DEXAMETHASONE SOD PHOSPHATE 4 MG/1 ML VIAL IVPUSH SCH ×3 (09:04→21:44)
[2019-10-15] MEDS: LIPASE/PROTEASE/AMYLASE 36,000 UNIT CAPSULE PO SCH (09:07)
[2019-10-15] MEDS ORDERED: ALPRAZolam 0.25 MG TABLET PO PRN (09:31)
[2019-10-15 09:32] LABS: BASO % 0.2 % (0-2.0); EOS % 0.1 % (0-4.5); HEMATOCRIT 41.8 % (32.4-45.2); HEMOGLOBIN 14.3 GM/dL (10.7-15.3); LYMPH % 33.8 % (8-40); MCH 31.7 pg (25.7-33.7); MCHC 34.1 g/dl (32.0-36.0); MEAN CELL VOLUME 93.1 fl (80-96); MEAN PLT VOLUME 9.1 fl (7.5-11.1); MONO % 2.2 % (3.8-10.2); NEUT % 63.7 % (42.8-82.8); PLATELET COUNT 212 K/MM3 (134-434); RBC 4.49 M/mm3 (3.60-5.2); WHITE BLOOD COUNT 10.2 K/mm3 (4.0-10.0)
[2019-10-15] MEDS: LIDOCAINE 5% TOPICAL PATCH TP SCH (09:37)
[2019-10-15] MEDS: CALCIUM 500MG/VIT-D 200 UNITS COMBO TABLET (FP) PO SCH (09:39)
[2019-10-15] MEDS: MAGNESIUM OXIDE 400 MG TABLET (FP) PO SCH (09:39)
[2019-10-15] MEDS: GABAPENTIN 300 MG CAPSULE PO SCH ×2 (09:39→21:44)
[2019-10-15] MEDS: DONEPEZIL HCL 5 MG TABLET (FP) PO SCH (09:39)
[2019-10-15] MEDS: PANTOPRAZOLE 40 MG TABLET PO SCH (09:39)
[2019-10-15] MEDS: OMEGA-3 ACID ETHYL ESTERS (FATTY-ACIDS) 1 GM CAPSULE (FP) PO SCH (09:40)
[2019-10-15] MEDS ORDERED: PATIENT'S OWN MEDICATION (NON-FORMULARY) (Icosapent Ethyl [Vascepa] 1 GM) PO SCH (10:00)
[2019-10-15 10:09] LABS: ALBUMIN 3.8 g/dl (3.4-5.0); BILIRUBIN,TOTAL 0.5 mg/dL (0.2-1); BLOOD UREA NITROGEN 35.4 mg/dL (7-18); CALCIUM 8.8 mg/dL (8.5-10.1); CREATININE 0.8 mg/dL (0.55-1.3); POTASSIUM 4.1 mmol/L (3.5-5.1); TOT PROT 7.9 g/dl (6.4-8.2)
[2019-10-15] MEDS ORDERED: methylPREDNISolone ACET (DEPO) 80 MG/1 ML VIAL IM ONE (10:17)
--- NOTE | 2019-10-15 10:17 | PN ---
Progress Note (short form) - Note Progress Note: Pt seen and examined. In addition to Dr Rosendo Lorenzo's findings: PE Her worst pain at this moment is at the lateral aspect of her left thigh, over the ITB. Good, painless ROM of the left hip, knee. Good resistance strength of knee extension, hip flexion. No pain with hip IR or ER, F or Ext Imp In addition to her LS pathology she has an acute, moderate to severe left ITB tendinitis. Rec After discussion with the family, she is consenting for a cortisone injection into the left ITB tendinitis. 80mg DepoMedrol and 1% Lidocaine ordered to the floor for injection.
[2019-10-15] MEDS: traMADol HCL 50 MG TABLET PO PRN (12:53)
--- NOTE | 2019-10-15 13:36 | PN ---
Physical Exam: SUBJECTIVE: Patient seen and examined today in AM. No acute events overnight. Pt still in equisite pain 10/10 in her left Lower extremity. No fever or chills etc. OBJECTIVE: Vital Signs Period Temp Pulse Resp BP Sys/Tadeo Pulse Ox Last 24 Hr 97.9 F-98.2 F 64-91 19-20 137-154/68-80 96 Physical Exam: GENERAL: The patient is awake, alert in acute distress. HEAD: Normal with no signs of trauma. LUNGS: Breath sounds equal, clear to auscultation bilaterally, no wheezes, no crackles, no accessory muscle use. HEART: Regular rate and rhythm, S1, S2 without murmur, rub or gallop. ABDOMEN: Soft, nontender, nondistended, normoactive bowel sounds, no guarding, no rebound. EXTREMITIES: 2+ pulses, warm, well-perfused, no edema. NEUROLOGICAL:SLR negative today, Left leg, ttp left back, 2+pulses b/l, ROM impaired not due to pain, but improved from yesterday slightly. Bernie test positive. Laboratory Results - last 24 hr 10/15/19 10/15/19 08:38 08:38 WBC 10.2 H RBC 4.49 Hgb 14.3 Hct 41.8 MCV 93.1 MCH 31.7 MCHC 34.1 RDW 14.0 Plt Count 212 MPV 9.1 Absolute Neuts (auto) 6.5 Neutrophils % 63.7 D Lymphocytes % 33.8 D Monocytes % 2.2 L Eosinophils % 0.1 Basophils % 0.2 Nucleated RBC % 0 Sodium 139 Potassium 4.1 Chloride 104 Carbon Dioxide 27 Anion Gap 8 BUN 35.4 H Creatinine 0.8 Est GFR (CKD-EPI)AfAm 83.00 Est GFR (CKD-EPI)NonAf 71.61 Random Glucose 142 H Calcium 8.8 Total Bilirubin 0.5 AST 93 H ALT 185 H Alkaline Phosphatase 64 Total Protein 7.9 Albumin 3.8 Active Medications Generic Name Dose Route Start Last Admin Trade Name Freq PRN Reason Stop Dose Admin Calcium Carbonate/Cholecalciferol 1 tab 10/14/19 15:15 10/15/19 09:39 Os-Alexander 500+D - PO 1 tab DAILY MARY KATE Administration Cyclobenzaprine HCl 5 mg 10/13/19 22:00 10/14/19 21:09 Cyclobenzaprine Hcl PO 5 mg HS MARY KATE Administration Dexamethasone Sodium Phosphate 4 mg 10/15/19 09:00 10/15/19 09:04 Decadron Injection - IVPUSH 4 mg Q6H-IV MARY KATE Administration Donepezil HCl 5 mg 10/14/19 10:00 10/15/19 09:39 Aricept - PO 5 mg DAILY MARY KATE Administration Gabapentin 300 mg 10/14/19 10:00 10/15/19 09:39 Neurontin - PO 300 mg BID MARY KATE Administration Ibuprofen 400 mg 10/15/19 09:30 Motrin - PO Q8H PRN PAIN LEVEL 1-5 Lidocaine 1 patch 10/14/19 10:00 10/15/19 09:37 Lidoderm Patch - TP 1 patch DAILY MARY KATE Administration Magnesium Oxide 400 mg 10/15/19 10:00 10/15/19 09:39 Mag-Ox - PO 400 mg DAILY MARY KATE Administration Miscellaneous 1 each 10/13/19 22:00 10/14/19 21:09 Lidoderm Patch Removal MC 1 each DAILY@2200 MARY KATE Administration Hrjat-5-Oelh Ethyl Esters 1 gm 10/15/19 10:00 10/15/19 09:40 Lovaza - PO 1 gm DAILY MARY KATE Administration Pancrelipase 1 cap 10/15/19 08:00 10/15/19 09:07 Aura Campbell 36,000 Units Capsule PO 1 cap DAILY@0800 MARY KATE Administration Pantoprazole Sodium 40 mg 10/14/19 10:30 10/15/19 09:39 Protonix - PO 40 mg DAILY MARY KATE Administration Tramadol HCl 50 mg 10/15/19 11:02 10/15/19 12:53 Ultram - PO 50 mg Q6H PRN Administration PAIN LEVEL 6-10 ASSESSMENT/PLAN: CT/LUMBAR SPINE CT W/O CONTRAST CT scan lumbar spine performed in the axial plane with multiplanar reformatting without contrast HISTORY: Left sided pain COMPARISON: December 17, 2015 Focal disc bulging left aspect of L2-3 with narrowing of the left neural foramen l and left lateral recess. This was not delineated on prior study of 2016 No compression fracture No listhesis No osteolytic lesion identified No other levels of possible spinal stenosis IMPRESSION: Focal disc bulging left aspect of L2-3 with narrowing of the left neuroforamen and left lateral recess. Recommend MRI for confirmation Reported By : Stas Crouch MD 10/12/19 1238 " ASSESSMENT/PLAN: 74 yo malay speaking female F with PMH of chronic lumbar radiculopathy, Guillain-barre syndrome in 2016, Osteoporosis, HTN, Fatty Liver, and GERD presenting to the ED with sharp left sided back pain Intractable back pain - 2/2 ITB syndrome vs acute on chronic radiculopathy - ct findings above - negative straight leg raise test on the Left - lidocaine patch in place - MRI of the lumbar region- L T11-12 paracentral disc protrusion; L L2-3 paracentral HNP into neuroforamen with lateral recess and foramenal stenosis, R > L L3-4 disc bulge with mild-moderate stenosis; sacralized L5 segment. Increased L L2-3 foramenal HNP with L LBP and L3 radiculopathy - Dr. Sanford performed injection into ITB Depomedrol 80mg and lido 1% will assess tm am if improved in symptoms. Ortho has signed off. - Neurosugery consult Dr Lorenzo not intervening surgically at this time. IV 4mg IVP decadron day 1 started, d/c po prednisone, continue 40protonix daily, neurontin, and PT for now. - Spoke with pain mgmt (Dr. Cade) who believes pt would benefit most from injection of steroids into L2-L3 spine for or pt can f/u as op. Hold AC 24 hrs prior. - PT eval was limited due to pain pt could only walk 5 steps - may uptitrate gabapentin from 300->600 TID as tolerated per PMR and Epidural can be done - started on tramadol but will attempt to stop at earliest possibility. Abnormal LFTs - hx of fatty liver chronic no clear source identified from previous work up - abdominal US ordered to assess for possible fatty liver - f/u with GI as o/p. HTN resume home meds Gerd resume home meds FEN no standing fluid. encourage po intake monitor lytes regular diet DVT 5K TID Visit type - Emergency Visit Emergency Visit: Yes ED Registration Date: 10/13/19 Care time: The patient presented to the Emergency Department on the above date and was hospitalized for further evaluation of their emergent condition. - New Patient This patient is new to me today: No - Critical Care Critical Care patient: No - Discharge Referral Referred to [facility] Med P.C.: No ATTENDING PHYSICIAN STATEMENT I saw and evaluated the patient. I reviewed the resident's note and discussed the case with the resident. I agree with the resident's findings and plan as documented. SUBJECTIVE: OBJECTIVE: ASSESSMENT AND PLAN:
[2019-10-15] MEDS ORDERED: IBUPROFEN 400 MG TABLET (FP) PO PRN (14:00)
[2019-10-15] MEDS ORDERED: LIDOCAINE HCL 1%, 10 MG/ML (20ML VIAL) ONE (15:15)
--- NOTE | 2019-10-15 15:26 | PN ---
Progress Note (short form) - Note Progress Note: After informed consent I injected the point of maximum tenderness over the distal left ITB with 80mg DepoMedrol and 1cc 1% Lidocaine. No complications. Tolerated well. Pt can be DC'd from an orthopedic pov Will follow PRN.
--- NOTE | 2019-10-15 16:44 | PN ---
Teaching Attending Note Name of Resident: Oneal Santos ATTENDING PHYSICIAN STATEMENT I saw and evaluated the patient. I reviewed the resident's note and discussed the case with the resident. I agree with the resident's findings and plan as documented. SUBJECTIVE: Complains of pain LLE. No fever/chills. No bladder/bowel incontinence. OBJECTIVE: Afebrile, Hemodynamically Stable. Last Vital Signs Temp Pulse Resp BP Pulse Ox 98.1 F 101 H 18 163/74 94 L 10/15/19 14:49 10/15/19 14:49 10/15/19 14:49 10/15/19 14:49 10/15/19 09:00 HEENT - Atramatic, Normocephalic. Heart - S1, S2, RRR Lungs - clear to auscultation Abdomen - Soft, non-tender. Bowel Sounds normal. Extremities - no edema, no calf tenderness. Neurovascularly intact. MS - Pain on flexion about hip. Laboratory Results - last 24 hr 10/15/19 10/15/19 08:38 08:38 WBC 10.2 H RBC 4.49 Hgb 14.3 Hct 41.8 MCV 93.1 MCH 31.7 MCHC 34.1 RDW 14.0 Plt Count 212 MPV 9.1 Absolute Neuts (auto) 6.5 Neutrophils % 63.7 D Lymphocytes % 33.8 D Monocytes % 2.2 L Eosinophils % 0.1 Basophils % 0.2 Nucleated RBC % 0 Sodium 139 Potassium 4.1 Chloride 104 Carbon Dioxide 27 Anion Gap 8 BUN 35.4 H Creatinine 0.8 Est GFR (CKD-EPI)AfAm 83.00 Est GFR (CKD-EPI)NonAf 71.61 Random Glucose 142 H Calcium 8.8 Total Bilirubin 0.5 AST 93 H ALT 185 H Alkaline Phosphatase 64 Total Protein 7.9 Albumin 3.8 Current Medications Generic Name Dose Route Start Last Admin Trade Name Freq PRN Reason Stop Dose Admin Calcium Carbonate/Cholecalciferol 1 tab 10/14/19 15:15 10/15/19 09:39 Os-Alexander 500+D - PO 1 tab DAILY MARY KATE Administration Cyclobenzaprine HCl 5 mg 10/13/19 22:00 10/14/19 21:09 Cyclobenzaprine Hcl PO 5 mg HS MARY KATE Administration Dexamethasone Sodium Phosphate 4 mg 10/15/19 09:00 10/15/19 15:24 Decadron Injection - IVPUSH 4 mg Q6H-IV MARY KATE Administration Donepezil HCl 5 mg 10/14/19 10:00 10/15/19 09:39 Aricept - PO 5 mg DAILY MARY KATE Administration Gabapentin 300 mg 10/14/19 10:00 10/15/19 09:39 Neurontin - PO 300 mg BID MARY KATE Administration Ibuprofen 400 mg 10/15/19 09:30 Motrin - PO Q8H PRN PAIN LEVEL 1-5 Lidocaine 1 patch 10/14/19 10:00 10/15/19 09:37 Lidoderm Patch - TP 1 patch DAILY MARY KATE Administration Magnesium Oxide 400 mg 10/15/19 10:00 10/15/19 09:39 Mag-Ox - PO 400 mg DAILY MARY KATE Administration Miscellaneous 1 each 10/13/19 22:00 10/14/19 21:09 Lidoderm Patch Removal MC 1 each DAILY@2200 MARY KATE Administration Fwffs-0-Wpvk Ethyl Esters 1 gm 10/15/19 10:00 10/15/19 09:40 Lovaza - PO 1 gm DAILY MARY KATE Administration Pancrelipase 1 cap 10/15/19 08:00 10/15/19 09:07 Aura Campbell 36,000 Units Capsule PO 1 cap DAILY@0800 MARY KATE Administration Pantoprazole Sodium 40 mg 10/14/19 10:30 10/15/19 09:39 Protonix - PO 40 mg DAILY MARY KATE Administration Tramadol HCl 50 mg 10/15/19 11:02 10/15/19 12:53 Ultram - PO 50 mg Q6H PRN Administration PAIN LEVEL 6-10 Home Medications Medication Instructions Recorded Esomeprazole Mag Trihydrate 40 mg PO DAILY 02/11/14 [Nexium] Gabapentin 100 mg PO BID 02/11/14 Alprazolam 0.25 mg PO PRN 10/12/19 Calcium Carbonate/Vitamin D3 1 each PO BID 10/12/19 [Calcium 500 + Vit D 200 Caplet] Cyclobenzaprine HCl 5 mg PO HS #14 tablet 10/12/19 Donepezil HCl [Aricept -] 5 mg PO DAILY 10/12/19 Ibuprofen 400 mg PO PRN 10/12/19 Icosapent Ethyl [Vascepa] 2 cap PO BID 10/12/19 Lipase/Protease/Amylase [Aura Campbell 1 cap PO TID 10/12/19 36,000 Units Capsule] Magnesium Oxide 400 mg PO DAILY 10/12/19 Methylprednisolone [Medrol Dose 4 mg PO ASDIR #21 tablet 10/12/19 John] Naproxen 375 mg PO BID #20 tablet 10/12/19 Ascorbate Calcium [Vitamin C] 500 mg PO DAILY 10/15/19 Atorvastatin Calcium 10 mg PO HS 10/15/19 Loratadine 10 mg PO DAILY PRN 10/15/19 Sertraline HCl 25 mg PO DAILY 10/15/19 Vitamin B Complex 1 cap PO DAILY 10/15/19 ASSESSMENT AND PLAN: 74 year old Uzbek speaking female with PMH of Dementia, Depression/Anxiety, chronic lumbar radiculopathy, Guillain-[place] Syndrome in 2016, Osteoporosis, HTN , Fatty Liver, and GERD, presented with left sided flank/lumbar pain, radiating down left LE. 1. 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 Increased L L2-3 formanenal HNP with L LBP and L3 radiculopathy s/p ITB Depomedrol injection by Ortho IV Steroid as per Neurosurgery. Neurontin GI Px. Trial of Tramadol for pain PT 2. Elevated Transaminases ? sec to Chronic Hep B Hep Bc Ab positive Abdominal US requested. GI follow up on discharge. 3. Dementia/Depression/Anxiety - resume Donepezil, Sertraline 4. GERD - Continue PPI. DVT Px - SCDs. Heparin held due to possibility of para-spinal injection
[2019-10-15] MEDS: CYCLOBENZAPRINE HCL 5 MG TABLET PO SCH (21:44)
[2019-10-15] MEDS: LIDOCAINE PATCH REMOVAL MC SCH (21:44)
[2019-10-15] MEDS ORDERED: ALPRAZolam 0.25 MG TABLET PO ONE (21:45)
--- NOTE | 2019-10-15 22:54 | CONSULT ---
Consult Consult Specialty:: Interventional Pain Management Reason for Consultation:: Left Low back and Leg Pain - History of Present Illness Chief Complaint: Left Low back and Leg Pain History of Present Illness: The legal researcher phone was utilized. Previous progress notes reviewed. The patient complains of low back and leg pain radiating to the knee. Described as burning and aching. Nothing makes it better. She had a similar epiisode several years ago where she was hospitalized for several days. Pain is rated 10/ 10. She has been evaluated by Neurosurgery, [place] [facility], and Pt. She recieved an ITBand injection today with some relief. She is interested in interventional pain management. Pt has a Left sided L2-L3 lateral disk herniation abbutting the nerve root. MRI Images were reviewed. 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: Yes: Other (paresthesias of hands and feet-progressive) Cardio/Vascular: Yes: Hyperlipdemia Gastrointestinal: Yes: GERD Infectious Disease: Yes: Herpes Zoster Rheumatology: Yes: Other (osteoporosis) - Past Surgical History Past Surgical History: Yes: Breast Biopsy (per pt, benign) - Alcohol/Substance Use Hx Alcohol Use: No - Smoking History Smoking history: Never smoked Have you smoked in the past 12 months: No - Social History Usual Living Arrangement: Assisted Living History of Recent Travel: No Home Medications - Allergies Allergies/Adverse Reactions: Allergies Allergy/AdvReac Type Severity Reaction Status Date / Time morphine AdvReac Verified 10/14/19 07:43 - Home Medications Home Medications: Ambulatory Orders Esomeprazole Mag Trihydrate [Nexium] 40 mg PO DAILY 02/11/14 Gabapentin 100 mg PO BID 02/11/14 Alprazolam 0.25 mg PO PRN 10/12/19 Calcium Carbonate/Vitamin D3 [Calcium 500 + Vit D 200 Caplet] 1 each PO BID 08/21 Cyclobenzaprine HCl 5 mg PO HS #14 tablet 10/12/19 Donepezil HCl [Aricept -] 5 mg PO DAILY 10/12/19 Ibuprofen 400 mg PO PRN 10/12/19 Icosapent Ethyl [Vascepa] 2 cap PO BID 10/12/19 Lipase/Protease/Amylase [Aura Dr 36,000 Units Capsule] 1 cap PO TID 10/12/19 Magnesium Oxide 400 mg PO DAILY 10/12/19 Methylprednisolone [Medrol Dose John] 4 mg PO ASDIR #21 tablet 10/12/19 Naproxen 375 mg PO BID #20 tablet 10/12/19 Ascorbate Calcium [Vitamin C] 500 mg PO DAILY 10/15/19 Atorvastatin Calcium 10 mg PO HS 10/15/19 Loratadine 10 mg PO DAILY PRN 10/15/19 Sertraline HCl 25 mg PO DAILY 10/15/19 Vitamin B Complex 1 cap PO DAILY 10/15/19 Review of Systems Findings/Remarks: Denies bowel bladdder incontinence or other red flag signs - Review of Systems Neurological: reports: Parasthesia (Left Leg to the thigh ocaisonally past the knee.) Physical Exam Vital Signs: Vital Signs Temperature 98.1 F 10/15/19 19:24 Pulse Rate 84 10/15/19 19:24 Respiratory Rate 18 10/15/19 14:49 Blood Pressure 139/65 10/15/19 19:24 O2 Sat by Pulse Oximetry (%) 94 L 10/15/19 09:00 Constitutional: Yes: Well Nourished Eyes: Yes: Conjunctiva Clear HENT: Yes: Atraumatic, Normocephalic Neck: Yes: Trachea Midline Cardiovascular: Yes: Regular Rate and Rhythm Renal/: No: WNL, Anuria, Bladder Distention, CVA Tenderness - Left, CVA Tenderness - Right, Garcia Present, Hematuria, Incontinence, Menses Present, Oliguria, Polyuria, , Scrotal Edema, Urethral Discharge, Vaginal Bleeding, Vaginal Discharge, Other Musculoskeletal: Yes: Back Pain, Other (TTP Over the Left Paraspinal Musculature NO TTP over the Left SIJ No TTP over the Left GTB) Neurological: Yes: Other (DTRS symetric 1+ SLR postive Left) Labs: CBC, BMP 10/15/19 08:38 10/15/19 08:38 Imaging - Results Cat Scan: Image Reviewed MRI: Image Reviewed Assessment/Plan The patients pain is likley secondary to her left L2-L3 Disc herniation causing her lumbar radiculopathy based on imaging, PE, and pt report. Recommendations: 1. Multimodal Pain Management includin. Increase gabapentin 300 MG TID and may uptitrate as tolerated slowly to 600 mg TID. Monitor for sedation dizziness etc. 3. If patient and family amenable would recommend Left L2 and L3 Transforaminal Epidural Steroid injection (TFESI). Depending on d/c planning this may be done while inpatient or outpatient. There is OR/Interventonal availability this 10/17 in the afternoon. Dsicussed the procedure wiht the patient at on license of [facility] using male infertility specialist phone. 4. Cont Lidoderm patch for topical analgesia. 5. Standing Tylenol 1000 Mg BID or TID. Monitor LFTs 5. Cont Physical therapy 6. Consider switiching from IV steroids to PO NSAIDS as tolerated per discretion of the primary team. 7. Hold Blood Thinners 24 hours prior to Injection. 8. Consider Discontinuing Tramadol and maximizing non-opiod analgesics/ interventions as above. Discussed the above plan with collection support specialist residents. Pt may follow up in my office after discharge. Please call [phone] to schedule an appointment for continue Interventional Pain Management care. Thank you for your consult. Glen Cade DO
[2019-10-16] MEDS: DEXAMETHASONE SOD PHOSPHATE 4 MG/1 ML VIAL IVPUSH SCH ×2 (02:48→09:19)
[2019-10-16 09:36] LABS: BASO % 0.4 % (0-2.0); HEMATOCRIT 40.6 % (32.4-45.2); HEMOGLOBIN 13.8 GM/dL (10.7-15.3); LYMPH % 15.4 % (8-40); MCH 31.6 pg (25.7-33.7); MCHC 33.9 g/dl (32.0-36.0); MEAN CELL VOLUME 93.1 fl (80-96); MEAN PLT VOLUME 9.2 fl (7.5-11.1); MONO % 1.8 % (3.8-10.2); NEUT % 82.4 % (42.8-82.8); PLATELET COUNT 201 K/MM3 (134-434); RBC 4.37 M/mm3 (3.60-5.2); WHITE BLOOD COUNT 12.3 K/mm3 (4.0-10.0)
[2019-10-16 10:06] LABS: ALBUMIN 3.6 g/dl (3.4-5.0); BILIRUBIN,TOTAL 0.4 mg/dL (0.2-1); CALCIUM 9.1 mg/dL (8.5-10.1); CREATININE 0.7 mg/dL (0.55-1.3); POTASSIUM 4.2 mmol/L (3.5-5.1); TOT PROT 7.6 g/dl (6.4-8.2)
[2019-10-16] MEDS ORDERED: predniSONE 5 MG TABLET (UD) PO SCH (10:30)
[2019-10-16] MEDS: OMEGA-3 ACID ETHYL ESTERS (FATTY-ACIDS) 1 GM CAPSULE (FP) PO SCH (10:50)
[2019-10-16] MEDS: MAGNESIUM OXIDE 400 MG TABLET (FP) PO SCH (10:50)
[2019-10-16] MEDS: CALCIUM 500MG/VIT-D 200 UNITS COMBO TABLET (FP) PO SCH (10:50)
[2019-10-16] MEDS: SERTRALINE HCL 25 MG TABLET (FP) PO SCH (10:50)
[2019-10-16] MEDS: GABAPENTIN 300 MG CAPSULE PO SCH ×2 (10:50→21:36)
[2019-10-16] MEDS: DONEPEZIL HCL 5 MG TABLET (FP) PO SCH (10:50)
[2019-10-16] MEDS: PANTOPRAZOLE 40 MG TABLET PO SCH (10:50)
[2019-10-16] MEDS: LIDOCAINE 5% TOPICAL PATCH TP SCH (10:51)
[2019-10-16] MEDS: LIPASE/PROTEASE/AMYLASE 36,000 UNIT CAPSULE PO SCH (10:52)
--- NOTE | 2019-10-16 10:52 | PN ---
Progress Note (short form) - Note Progress Note: Pt seen and examined. Pt still c/o LBP and left ITB tendinitis. Received a cortisone injection yesterday. Doing fine. Minimal relief so far. Relief expected after 3 days, full effect after 1 week. She can be DC'd from an orthopedic pov. F/U PRN as an out pt
[2019-10-16] MEDS: IBUPROFEN 400 MG TABLET (FP) PO PRN ×2 (11:31→22:05)
--- NOTE | 2019-10-16 13:39 | PN ---
Physical Exam: SUBJECTIVE: Patient seen and examined at bedside this AM. No acute events. Pt still c/o pain but improved slightly. Pt received xanax 0.25 which provided some acute relief. OBJECTIVE: Vital Signs Period Temp Pulse Resp BP Sys/Tadeo Pulse Ox Last 24 Hr 97.2 F-98.1 F 78-101 18-18 134-163/65-74 94 GENERAL: The patient is awake, alert, and fully oriented, in no acute distress. NECK: Trachea midline, full range of motion, supple. LUNGS: Breath sounds equal, clear to auscultation bilaterally, no wheezes, no crackles, no accessory muscle use. HEART: Regular rate and rhythm, S1, S2 without murmur, rub or gallop. ABDOMEN: Soft, nontender, nondistended, normoactive bowel sounds, no guarding, no rebound. EXTREMITIES: 2+ pulses, warm, well-perfused, no edema. NEUROLOGICAL: SLR negative, Left leg, ttp left back, 2+pulses b/l, ROM impaired due to pain, but improved from yesterday slightly. PSYCH: Normal mood, normal affect. SKIN: Warm, dry, no rashes or lesions noted Laboratory Results - last 24 hr 10/16/19 10/16/19 06:00 09:10 WBC 12.3 H RBC 4.37 Hgb 13.8 Hct 40.6 MCV 93.1 MCH 31.6 MCHC 33.9 RDW 14.0 Plt Count 201 MPV 9.2 Absolute Neuts (auto) 10.1 H Neutrophils % 82.4 D Lymphocytes % 15.4 D Monocytes % 1.8 L Eosinophils % 0.0 D Basophils % 0.4 Nucleated RBC % 0 Sodium 141 Potassium 4.2 Chloride 107 Carbon Dioxide 26 Anion Gap 7 L BUN 29.0 H Creatinine 0.7 Est GFR (CKD-EPI)AfAm 97.54 Est GFR (CKD-EPI)NonAf 84.16 Random Glucose 128 H Calcium 9.1 Total Bilirubin 0.4 AST 49 H ALT 143 H Alkaline Phosphatase 66 Total Protein 7.6 Albumin 3.6 Active Medications Generic Name Dose Route Start Last Admin Trade Name Freq PRN Reason Stop Dose Admin Alprazolam 0.25 mg 10/16/19 08:28 Xanax - PO DAILY PRN ANXIETY Atorvastatin Calcium 10 mg 10/16/19 22:00 Lipitor - PO HS MARY KATE Calcium Carbonate/Cholecalciferol 1 tab 10/14/19 15:15 10/16/19 10:50 Os-Alexander 500+D - PO 1 tab DAILY MARY KATE Administration Cyclobenzaprine HCl 5 mg 10/13/19 22:00 10/15/19 21:44 Cyclobenzaprine Hcl PO 5 mg HS MARY KATE Administration Donepezil HCl 5 mg 10/14/19 10:00 10/16/19 10:50 Aricept - PO 5 mg DAILY MARY KATE Administration Gabapentin 300 mg 10/14/19 10:00 10/16/19 10:50 Neurontin - PO 300 mg BID MARY KATE Administration Ibuprofen 400 mg 10/15/19 09:30 10/16/19 11:31 Motrin - PO 400 mg Q8H PRN Administration PAIN LEVEL 1-5 Lidocaine 1 patch 10/14/19 10:00 10/16/19 10:51 Lidoderm Patch - TP 1 patch DAILY MARY KATE Administration Magnesium Oxide 400 mg 10/15/19 10:00 10/16/19 10:50 Mag-Ox - PO 400 mg DAILY MARY KATE Administration Methylprednisolone 4 mg 10/16/19 11:00 Medrol - PO 10/18/19 23:59 BID MARY KATE Miscellaneous 1 each 10/13/19 22:00 10/15/19 21:44 Lidoderm Patch Removal MC 1 each DAILY@2200 MARY KATE Administration Qeuuq-0-With Ethyl Esters 1 gm 10/15/19 10:00 10/16/19 10:50 Lovaza - PO 1 gm DAILY MARY KATE Administration Pancrelipase 1 cap 10/15/19 08:00 10/16/19 10:52 Aura Campbell 36,000 Units Capsule PO 1 cap DAILY@0800 MARY KATE Administration Pantoprazole Sodium 40 mg 10/14/19 10:30 10/16/19 10:50 Protonix - PO 40 mg DAILY MARY KATE Administration Sertraline HCl 25 mg 10/16/19 10:00 10/16/19 10:50 Zoloft - PO 25 mg DAILY MARY KATE Administration Tramadol HCl 50 mg 10/15/19 11:02 10/15/19 12:53 Ultram - PO 50 mg Q6H PRN Administration PAIN LEVEL 6-10 ASSESSMENT/PLAN: Images: CT/LUMBAR SPINE CT W/O CONTRAST CT scan lumbar spine performed in the axial plane with multiplanar reformatting without contrast HISTORY: Left sided pain COMPARISON: December 17, 2015 Focal disc bulging left aspect of L2-3 with narrowing of the left neural foramen l and left lateral recess. This was not delineated on prior study of 2016 No compression fracture No listhesis No osteolytic lesion identified No other levels of possible spinal stenosis IMPRESSION: Focal disc bulging left aspect of L2-3 with narrowing of the left neuroforamen and left lateral recess. Recommend MRI for confirmation Reported By : Stas Crouch MD 10/12/19 1238 " - MRI of the lumbar region- L T11-12 paracentral disc protrusion; L L2-3 paracentral HNP into neuroforamen with lateral recess and foramenal stenosis, R > L L3-4 disc bulge with mild-moderate stenosis; sacralized L5 segment. Increased L L2-3 foramenal HNP with L LBP and L3 radiculopathy 74 yo portuguese speaking female F with PMH of chronic lumbar radiculopathy, Guillain-barre syndrome in 2016, Osteoporosis, HTN, Fatty Liver, and GERD presenting to the ED with sharp left sided back pain Intractable back pain - 2/2 ITB syndrome vs acute on chronic radiculopathy - ct findings above - negative straight leg raise test on the Left - lidocaine patch in place - Dr. Sanford consulted- s/p ITB Depomedrol 80mg injection, mild improvement in sx's will continue to observe for signs of improvement. Ortho follow up prn. - 4mg PO BID Methylprednisolone, continue 40protonix daily, neurontin, and PT for now. - (Dr. Cade) will undergo injection of steroids into L2-L3 spine for and pt can f/u as op. Holding AC 24 hrs prior as well as NPO after midnight. - PT eval - c/w tramadol. Abnormal LFTs - hx of fatty liver chronic no clear source identified from previous work up - abdominal US ordered to assess for possible fatty liver - f/u with GI as o/p. HTN resume home meds Gerd resume home meds FEN no standing fluid. encourage po intake monitor lytes regular diet DVT SCD DISPO: D/c to SNF tm after procedure tentatively if pt has improvement in sx's. Visit type - Emergency Visit Emergency Visit: Yes ED Registration Date: 10/13/19 Care time: The patient presented to the Emergency Department on the above date and was hospitalized for further evaluation of their emergent condition. - New Patient This patient is new to me today: No - Critical Care Critical Care patient: No - Discharge Referral Referred to [facility] No ATTENDING PHYSICIAN STATEMENT I saw and evaluated the patient. I reviewed the resident's note and discussed the case with the resident. I agree with the resident's findings and plan as documented. SUBJECTIVE: OBJECTIVE: ASSESSMENT AND PLAN:
--- NOTE | 2019-10-16 14:49 | PN ---
Teaching Attending Note Name of Resident: Rosibel Gonzalez ATTENDING PHYSICIAN STATEMENT I saw and evaluated the patient. I reviewed the resident's note and discussed the case with the resident. I agree with the resident's findings and plan as documented. SUBJECTIVE: Ongoing discomfort L back and LLE. No fever/chills. No bladder/ bowel incontinence. OBJECTIVE: Afebrile, Hemodynamically Stable. Last Vital Signs Temp Pulse Resp BP Pulse Ox 97.9 F 85 18 117/61 96 10/16/19 11:00 10/16/19 11:00 10/16/19 11:10/16/19 11:10/16/19 09:00 Heart - S1, S2, RRR Lungs - clear to auscultation Abdomen - Soft, non-tender. Bowel Sounds normal. Extremities - no edema, no calf tenderness. Neurovascularly intact. MS - Pain on flexion about hip. Laboratory Results - last 24 hr 10/16/19 10/16/19 06:00 09:10 WBC 12.3 H RBC 4.37 Hgb 13.8 Hct 40.6 MCV 93.1 MCH 31.6 MCHC 33.9 RDW 14.0 Plt Count 201 MPV 9.2 Absolute Neuts (auto) 10.1 H Neutrophils % 82.4 D Lymphocytes % 15.4 D Monocytes % 1.8 L Eosinophils % 0.0 D Basophils % 0.4 Nucleated RBC % 0 Sodium 141 Potassium 4.2 Chloride 107 Carbon Dioxide 26 Anion Gap 7 L BUN 29.0 H Creatinine 0.7 Est GFR (CKD-EPI)AfAm 97.54 Est GFR (CKD-EPI)NonAf 84.16 Random Glucose 128 H Calcium 9.1 Total Bilirubin 0.4 AST 49 H ALT 143 H Alkaline Phosphatase 66 Total Protein 7.6 Albumin 3.6 Current Medications Generic Name Dose Route Start Last Admin Trade Name Freq PRN Reason Stop Dose Admin Alprazolam 0.25 mg 10/16/19 08:28 Xanax - PO DAILY PRN ANXIETY Atorvastatin Calcium 10 mg 10/16/19 22:00 Lipitor - PO HS MARY KATE Calcium Carbonate/Cholecalciferol 1 tab 10/14/19 15:15 10/16/19 10:50 Os-Alexander 500+D - PO 1 tab DAILY MARY KATE Administration Cyclobenzaprine HCl 5 mg 10/13/19 22:00 10/15/19 21:44 Cyclobenzaprine Hcl PO 5 mg HS MARY KATE Administration Donepezil HCl 5 mg 10/14/19 10:00 10/16/19 10:50 Aricept - PO 5 mg DAILY MARY KATE Administration Gabapentin 300 mg 10/14/19 10:00 10/16/19 10:50 Neurontin - PO 300 mg BID MARY KATE Administration Ibuprofen 400 mg 10/15/19 09:30 10/16/19 11:31 Motrin - PO 400 mg Q8H PRN Administration PAIN LEVEL 1-5 Lidocaine 1 patch 10/14/19 10:00 10/16/19 10:51 Lidoderm Patch - TP 1 patch DAILY MARY KATE Administration Magnesium Oxide 400 mg 10/15/19 10:00 10/16/19 10:50 Mag-Ox - PO 400 mg DAILY MARY KATE Administration Methylprednisolone 4 mg 10/16/19 11:00 Medrol - PO 10/18/19 23:59 BID MARY KATE Miscellaneous 1 each 10/13/19 22:00 10/15/19 21:44 Lidoderm Patch Removal MC 1 each DAILY@2200 MARY KATE Administration Faxet-5-Getk Ethyl Esters 1 gm 10/15/19 10:00 10/16/19 10:50 Lovaza - PO 1 gm DAILY MARY KATE Administration Pancrelipase 1 cap 10/15/19 08:00 10/16/19 10:52 Aura Campbell 36,000 Units Capsule PO 1 cap DAILY@0800 MARY KATE Administration Pantoprazole Sodium 40 mg 10/14/19 10:30 10/16/19 10:50 Protonix - PO 40 mg DAILY MARY KATE Administration Sertraline HCl 25 mg 10/16/19 10:00 10/16/19 10:50 Zoloft - PO 25 mg DAILY MARY KATE Administration Tramadol HCl 50 mg 10/15/19 11:02 10/15/19 12:53 Ultram - PO 50 mg Q6H PRN Administration PAIN LEVEL 6-10 Home Medications Medication Instructions Recorded Esomeprazole Mag Trihydrate 40 mg PO DAILY 02/11/14 [Nexium] Gabapentin 100 mg PO BID 02/11/14 Alprazolam 0.25 mg PO PRN 10/12/19 Calcium Carbonate/Vitamin D3 1 each PO BID 10/12/19 [Calcium 500 + Vit D 200 Caplet] Cyclobenzaprine HCl 5 mg PO HS #14 tablet 10/12/19 Donepezil HCl [Aricept -] 5 mg PO DAILY 10/12/19 Ibuprofen 400 mg PO PRN 10/12/19 Icosapent Ethyl [Vascepa] 2 cap PO BID 10/12/19 Lipase/Protease/Amylase [Creon Dr 1 cap PO TID 10/12/19 36,000 Units Capsule] Magnesium Oxide 400 mg PO DAILY 10/12/19 Methylprednisolone [Medrol Dose 4 mg PO ASDIR #21 tablet 10/12/19 John] Naproxen 375 mg PO BID #20 tablet 10/12/19 Ascorbate Calcium [Vitamin C] 500 mg PO DAILY 10/15/19 Atorvastatin Calcium 10 mg PO HS 10/15/19 Loratadine 10 mg PO DAILY PRN 10/15/19 Sertraline HCl 25 mg PO DAILY 10/15/19 Vitamin B Complex 1 cap PO DAILY 10/15/19 ASSESSMENT AND PLAN: 74 year old Italian speaking female with PMH of Dementia, Depression/Anxiety, chronic lumbar radiculopathy, Guillain-[place] Syndrome in 2016, Osteoporosis, HTN , Fatty Liver, and GERD, presented with left sided flank/lumbar pain, radiating down left LE. 1. 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 Increased L L2-3 formanenal HNP with L LBP and L3 radiculopathy s/p ITB Depomedrol injection by Ortho IV Steroid as per Neurosurgery to transition to oral steroids. Seen by Pain Management - Gabapentin dose increased and patient for Transforaminal epidural steroid injection scheduled 10/17 GI Px. PT 2. Elevated Transaminases ? sec to Chronic Hep B Hep Bc Ab positive Abdominal US - fatty liver, mildly dilated CBD (chronic since 2015) GI follow up on discharge. 3. Dementia/Depression/Anxiety - resume Donepezil, Sertraline, Xanax PRN. 4. GERD - Continue PPI. DVT Px - SCDs. Heparin held due to epidural spinal injection.
[2019-10-16] MEDS: methylPREDNISolone 4 MG TABLET PO SCH ×2 (19:43→21:38)
[2019-10-16] MEDS: LIDOCAINE PATCH REMOVAL MC SCH (21:36)
[2019-10-16] MEDS: ALPRAZolam 0.25 MG TABLET PO PRN (21:36)
[2019-10-16] MEDS: CYCLOBENZAPRINE HCL 5 MG TABLET PO SCH (21:36)
[2019-10-16] MEDS ORDERED: ATORVASTATIN CA 10 MG TABLET (FP) PO SCH (22:00)
[2019-10-17 03:03] VITALS: TEMP 97.8
[2019-10-17] MEDS ORDERED: PT OWN MED DRAWER 7, Y5N ONE ×2 (06:47→10:49)
--- NOTE | 2019-10-17 07:53 | PN ---
Progress Note (short form) - Note Progress Note: NEUROSURGERY Left sided back pain worse with motion. Denies saddle anesthesia, significant weight loss, urinary/bowel incontinence, fever, chill. No systemic malignancy. Still with L ant and lat thigh pain. Pain management consult noted PE: AF, VSS General- unremarkable CN- normal; Motor- L IP/Quad 4- pain limited; o/w 4+-5; Sensation- slight numbness L L3; DTR- 1+ K 5.5, LFT's mildly elevated CT LS- mild spondylosis throughout, sacralized L5 segment, L L2-3 foramenal disc protrusion with moderate stenosis (worse since 2016); broad-based L3-4 disc bulge with mild-moderate stenosis MRI- L T11-12 paracentral disc protrusion; L L2-3 paracentral HNP into neuroforamen with lateral recess and foramenal stenosis, R > L L3-4 disc bulge with mild-moderate stenosis; sacralized L5 segment Increased L L2-3 formanenal HNP with L LBP and L3 radiculopathy On po medrol Neurontin PT For possible transforamenal EPSI per pain management
[2019-10-17 09:22] LABS: BASO % 0.7 % (0-2.0); EOS % 0.1 % (0-4.5); HEMOGLOBIN 13.8 GM/dL (10.7-15.3); LYMPH % 23.4 % (8-40); MCH 31.3 pg (25.7-33.7); MCHC 33.6 g/dl (32.0-36.0); MEAN CELL VOLUME 93.3 fl (80-96); MEAN PLT VOLUME 9.4 fl (7.5-11.1); MONO % 2.8 % (3.8-10.2); PLATELET COUNT 198 K/MM3 (134-434); RDW 13.7 % (11.6-15.6); WHITE BLOOD COUNT 10.4 K/mm3 (4.0-10.0)
[2019-10-17 09:48] LABS: ALBUMIN 3.4 g/dl (3.4-5.0); BILIRUBIN,TOTAL 0.5 mg/dL (0.2-1); BLOOD UREA NITROGEN 30.6 mg/dL (7-18); CALCIUM 8.5 mg/dL (8.5-10.1); CREATININE 0.7 mg/dL (0.55-1.3); POTASSIUM 4.3 mmol/L (3.5-5.1); TOT PROT 7.2 g/dl (6.4-8.2)
[2019-10-17 10:18] VITALS: BP 154/76; PULSE 67
[2019-10-17] MEDS: traMADol HCL 50 MG TABLET PO PRN ×2 (10:18→19:00)
[2019-10-17] MEDS: LIPASE/PROTEASE/AMYLASE 36,000 UNIT CAPSULE PO SCH (10:19)
[2019-10-17] MEDS: DONEPEZIL HCL 5 MG TABLET (FP) PO SCH (10:19)
[2019-10-17] MEDS: LIDOCAINE 5% TOPICAL PATCH TP SCH (10:19)
[2019-10-17] MEDS: SERTRALINE HCL 25 MG TABLET (FP) PO SCH (10:19)
[2019-10-17] MEDS: CALCIUM 500MG/VIT-D 200 UNITS COMBO TABLET (FP) PO SCH (10:19)
[2019-10-17] MEDS: PANTOPRAZOLE 40 MG TABLET PO SCH (10:19)
[2019-10-17] MEDS: MAGNESIUM OXIDE 400 MG TABLET (FP) PO SCH (10:19)
[2019-10-17] MEDS: GABAPENTIN 300 MG CAPSULE PO SCH (10:19)
[2019-10-17] MEDS: ALPRAZolam 0.25 MG TABLET PO PRN (10:19)
[2019-10-17] MEDS: OMEGA-3 ACID ETHYL ESTERS (FATTY-ACIDS) 1 GM CAPSULE (FP) PO SCH (10:20)
[2019-10-17] MEDS: methylPREDNISolone 4 MG TABLET PO SCH (10:20)
--- NOTE | 2019-10-17 12:22 | PN ---
Teaching Attending Note Name of Resident: Oneal Santos ATTENDING PHYSICIAN STATEMENT I saw and evaluated the patient. I reviewed the resident's note and discussed the case with the resident. I agree with the resident's findings and plan as documented. SUBJECTIVE: Ongoing discomfort LLE. No fever/chills. No bladder/bowel incontinence. OBJECTIVE: Afebrile, Hemodynamically Stable. Pain seems to be improved along with ROM. Last Vital Signs Temp Pulse Resp BP Pulse Ox 97.8 F 67 17 154/76 96 10/17/19 10:16 10/17/19 10:16 10/17/19 10:16 10/17/19 10:16 10/16/19 21:00 Heart - S1, S2, RRR Lungs - clear to auscultation Abdomen - Soft, non-tender. Bowel Sounds normal. Extremities - no edema, no calf tenderness. Neurovascularly intact. MS - More ROM and less pain on flexion LLE. Laboratory Results - last 24 hr 10/17/19 10/17/19 08:55 08:55 WBC 10.4 H RBC 4.40 Hgb 13.8 Hct 41.0 MCV 93.3 MCH 31.3 MCHC 33.6 RDW 13.7 Plt Count 198 MPV 9.4 Absolute Neuts (auto) 7.6 Neutrophils % 73.0 Lymphocytes % 23.4 D Monocytes % 2.8 L Eosinophils % 0.1 D Basophils % 0.7 Nucleated RBC % 0 Sodium 139 Potassium 4.3 Chloride 106 Carbon Dioxide 28 Anion Gap 5 L BUN 30.6 H Creatinine 0.7 Est GFR (CKD-EPI)AfAm 97.54 Est GFR (CKD-EPI)NonAf 84.16 Random Glucose 113 H Calcium 8.5 Total Bilirubin 0.5 AST 47 H ALT 126 H Alkaline Phosphatase 62 Total Protein 7.2 Albumin 3.4 Current Medications Generic Name Dose Route Start Last Admin Trade Name Freq PRN Reason Stop Dose Admin Alprazolam 0.25 mg 10/16/19 08:28 10/17/19 10:19 Xanax - PO 0.25 mg DAILY PRN Administration ANXIETY Atorvastatin Calcium 10 mg 10/16/19 22:00 10/16/19 21:36 Lipitor - PO 10 mg HS MARY KATE Administration Calcium Carbonate/Cholecalciferol 1 tab 10/14/19 15:15 10/17/19 10:19 Os-Alexander 500+D - PO 1 tab DAILY MARY KATE Administration Cyclobenzaprine HCl 5 mg 10/13/19 22:00 10/16/19 21:36 Cyclobenzaprine Hcl PO 5 mg HS MARY KATE Administration Donepezil HCl 5 mg 10/14/19 10:00 10/17/19 10:19 Aricept - PO 5 mg DAILY MARY KATE Administration Gabapentin 300 mg 10/14/19 10:00 10/17/19 10:19 Neurontin - PO 300 mg BID MARY KATE Administration Ibuprofen 400 mg 10/15/19 09:30 10/16/19 22:05 Motrin - PO 400 mg Q8H PRN Administration PAIN LEVEL 1-5 Lidocaine 1 patch 10/14/19 10:00 10/17/19 10:19 Lidoderm Patch - TP 1 patch DAILY MARY KATE Administration Magnesium Oxide 400 mg 10/15/19 10:00 10/17/19 10:19 Mag-Ox - PO 400 mg DAILY MARY KATE Administration Methylprednisolone 4 mg 10/16/19 11:00 10/17/19 10:20 Medrol - PO 10/18/19 23:59 4 mg BID MARY KATE Administration Miscellaneous 1 each 10/13/19 22:00 10/16/19 21:36 Lidoderm Patch Removal MC 1 each DAILY@2200 MARY KATE Administration Ctuzt-3-Hufi Ethyl Esters 1 gm 10/15/19 10:00 10/17/19 10:20 Lovaza - PO 1 gm DAILY MARY KATE Administration Pancrelipase 1 cap 10/15/19 08:00 10/17/19 10:19 Aura Campbell 36,000 Units Capsule PO Not Given DAILY@0800 MARY KATE Pantoprazole Sodium 40 mg 10/14/19 10:30 10/17/19 10:19 Protonix - PO 40 mg DAILY MARY KATE Administration Sertraline HCl 25 mg 10/16/19 10:00 10/17/19 10:19 Zoloft - PO 25 mg DAILY MARY KATE Administration Tramadol HCl 50 mg 10/15/19 11:02 10/17/19 10:18 Ultram - PO 50 mg Q6H PRN Administration PAIN LEVEL 6-10 Home Medications Medication Instructions Recorded Esomeprazole Mag Trihydrate 40 mg PO DAILY 02/11/14 [Nexium] Gabapentin 100 mg PO BID 02/11/14 Alprazolam 0.25 mg PO PRN 10/12/19 Calcium Carbonate/Vitamin D3 1 each PO BID 10/12/19 [Calcium 500-Vit D3 200 Caplet] Cyclobenzaprine HCl 5 mg PO HS #14 tablet 10/12/19 Donepezil HCl [Aricept -] 5 mg PO DAILY 10/12/19 Ibuprofen 400 mg PO PRN 10/12/19 Icosapent Ethyl [Vascepa] 2 cap PO BID 10/12/19 Lipase/Protease/Amylase [Creon Dr 1 cap PO TID 10/12/19 36,000 Units Capsule] Magnesium Oxide 400 mg PO DAILY 10/12/19 Naproxen 375 mg PO BID #20 tablet 10/12/19 Ascorbate Calcium [Vitamin C] 500 mg PO DAILY 10/15/19 Atorvastatin Calcium 10 mg PO HS 10/15/19 Sertraline HCl 25 mg PO DAILY 10/15/19 Vitamin B Complex 1 cap PO DAILY 10/15/19 Lidocaine 5% Patch [Lidoderm -] 1 patch TP DAILY patch 10/17/19 Methylprednisolone [Medrol -] See Taper PO ASDIR #6 tablet 10/17/19 [place]-3 Acid Ethyl Esters [Lovaza 1 gm PO DAILY cap 10/17/19 -] ASSESSMENT AND PLAN: 74 year old Turkmen speaking female with PMH of Dementia, Depression/Anxiety, chronic lumbar radiculopathy, Guillain-Canton Syndrome in 2016, Osteoporosis, HTN , Fatty Liver, and GERD, presented with left sided flank/lumbar pain, radiating down left LE. 1. 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 Increased L L2-3 formanenal HNP with L LBP and L3 radiculopathy s/p ITB Depomedrol injection by Ortho Initially received IV Steroid - now on oral tapering course of steroid as per NeuroSx. Seen by Pain Management - Gabapentin dose increased and patient scheduled for Transforaminal epidural steroid injection 10/17 GI Px. PT Medically optimized for transfer to SNF/Rehab after [facility] for ongoing PT/Rehab. 2. Elevated Transaminases ? sec to Chronic Hep B Hep Bc Ab positive Abdominal US - fatty liver, mildly dilated CBD (chronic since 2016) GI follow up on discharge. 3. Dementia/Depression/Anxiety - resume Donepezil, Sertraline, Xanax PRN. 4. GERD - Continue PPI. DVT Px - SCDs. Heparin held due to epidural spinal injection. Stable for DC after injection by pain management.
[2019-10-17] MEDS ORDERED: LIDOCAINE HCL 1%, 10 MG/ML (20ML VIAL) ONE (12:28)
[2019-10-17] MEDS ORDERED: BETAMET ACET/BETAMET NA PH 30 MG/5 ML VIAL ONE (12:28)
[2019-10-17] MEDS ORDERED: BUPIVACAINE HCL/PF 0.75% 10 ML VIAL ONE (12:29)
[2019-10-17] MEDS ORDERED: LIDOCAINE HCL 1% PRESERVATIVE FREE - 30ML VIAL IJ ONE ×2 (13:41→13:46)
[2019-10-17] MEDS ORDERED: IOHEXOL 180 MG/1 ML ML IJ ONE ×2 (13:54)
[2019-10-17] MEDS ORDERED: BETAMET ACET/BETAMET NA PH 30 MG/5 ML VIAL IM ONE ×2 (13:55)
--- NOTE | 2019-10-17 15:28 | PN ---
Physical Exam: SUBJECTIVE: Patient seen and examined this AM. Pt still in pain but improved. OBJECTIVE: Vital Signs Period Temp Pulse Resp BP Sys/Tadeo Pulse Ox Last 24 Hr 97.8 F-98.3 F 67-88 17-20 135-154/72-76 96 GENERAL: The patient is awake, alert, and fully oriented, in no acute distress. LUNGS: Breath sounds equal, clear to auscultation bilaterally, no wheezes, no crackles, no accessory muscle use. HEART: Regular rate and rhythm, S1, S2 without murmur, rub or gallop. ABDOMEN: Soft, nontender, nondistended, normoactive bowel sounds, no guarding, no rebound, no hepatosplenomegaly, no masses. EXTREMITIES: 2+ pulses, warm, well-perfused, no edema. NEUROLOGICAL: Cranial nerves II through XII grossly intact. Normal speech, gait not observed. Negative slr. Pain improved Laboratory Results - last 24 hr 10/17/19 10/17/19 08:55 08:55 WBC 10.4 H RBC 4.40 Hgb 13.8 Hct 41.0 MCV 93.3 MCH 31.3 MCHC 33.6 RDW 13.7 Plt Count 198 MPV 9.4 Absolute Neuts (auto) 7.6 Neutrophils % 73.0 Lymphocytes % 23.4 D Monocytes % 2.8 L Eosinophils % 0.1 D Basophils % 0.7 Nucleated RBC % 0 Sodium 139 Potassium 4.3 Chloride 106 Carbon Dioxide 28 Anion Gap 5 L BUN 30.6 H Creatinine 0.7 Est GFR (CKD-EPI)AfAm 97.54 Est GFR (CKD-EPI)NonAf 84.16 Random Glucose 113 H Calcium 8.5 Total Bilirubin 0.5 AST 47 H ALT 126 H Alkaline Phosphatase 62 Total Protein 7.2 Albumin 3.4 Active Medications Generic Name Dose Route Start Last Admin Trade Name Freq PRN Reason Stop Dose Admin Alprazolam 0.25 mg 10/16/19 08:28 10/17/19 10:19 Xanax - PO 0.25 mg DAILY PRN Administration ANXIETY Atorvastatin Calcium 10 mg 10/16/19 22:00 10/16/19 21:36 Lipitor - PO 10 mg HS MARY KATE Administration Calcium Carbonate/Cholecalciferol 1 tab 10/14/19 15:15 10/17/19 10:19 Os-Alexander 500+D - PO 1 tab DAILY MARY KATE Administration Cyclobenzaprine HCl 5 mg 10/13/19 22:00 10/16/19 21:36 Cyclobenzaprine Hcl PO 5 mg HS MARY KATE Administration Donepezil HCl 5 mg 10/14/19 10:00 10/17/19 10:19 Aricept - PO 5 mg DAILY MARY KATE Administration Gabapentin 300 mg 10/14/19 10:00 10/17/19 10:19 Neurontin - PO 300 mg BID MARY KATE Administration Ibuprofen 400 mg 10/15/19 09:30 10/16/19 22:05 Motrin - PO 400 mg Q8H PRN Administration PAIN LEVEL 1-5 Lidocaine 1 patch 10/14/19 10:00 10/17/19 10:19 Lidoderm Patch - TP 1 patch DAILY MARY KATE Administration Magnesium Oxide 400 mg 10/15/19 10:00 10/17/19 10:19 Mag-Ox - PO 400 mg DAILY MARY KATE Administration Methylprednisolone 4 mg 10/16/19 11:00 10/17/19 10:20 Medrol - PO 10/18/19 23:59 4 mg BID MARY KATE Administration Miscellaneous 1 each 10/13/19 22:00 10/16/19 21:36 Lidoderm Patch Removal MC 1 each DAILY@2200 MARY KATE Administration Pabmd-0-Tcyj Ethyl Esters 1 gm 10/15/19 10:00 10/17/19 10:20 Lovaza - PO 1 gm DAILY MARY KATE Administration Pancrelipase 1 cap 10/15/19 08:00 10/17/19 10:19 Aura Campbell 36,000 Units Capsule PO Not Given DAILY@0800 MARY KATE Pantoprazole Sodium 40 mg 10/14/19 10:30 10/17/19 10:19 Protonix - PO 40 mg DAILY MARY KATE Administration Sertraline HCl 25 mg 10/16/19 10:00 10/17/19 10:19 Zoloft - PO 25 mg DAILY MARY KATE Administration Tramadol HCl 50 mg 10/15/19 11:02 10/17/19 10:18 Ultram - PO 50 mg Q6H PRN Administration PAIN LEVEL 6-10 ASSESSMENT/PLAN: ATTENDING PHYSICIAN STATEMENT I saw and evaluated the patient. I reviewed the resident's note and discussed the case with the resident. I agree with the resident's findings and plan as documented. SUBJECTIVE: OBJECTIVE: ASSESSMENT AND PLAN:
--- NOTE | 2019-10-17 21:04 | PROC ---
Procedure Note Procedure: Pre procedure Diagnosis: Lumbar Radiculopahty Left Post procedure Diagnosis: Same Anasthesia: Mac Procedure Performed: Left L3 and L4 Transforaminal Epidural Steroid injection After the risks and benefits were explained, informed consent was obtained. The patient was then taken to the procedure room and positioned prone on the procedure table. Time out was performed. The region overlying the Left L3 and L4 neural foramens were identified using fluoroscopy. The skin was prepped and draped in the usual sterile fashion. The skin and soft tissues were anesthetized using 1% lidocaine. The neural foramens were identified with the fluoroscopic beam directed in a right oblique direction. 2 22 gauge 5 inch spinal needles were then introduced into the appropriate neural foramens using intermittent fluoroscopic guidance using AP, oblique and lateral views as indicated. Needle placement was then confirmed with the injection of Omnipaque 180. Epidural flow was noted and the nerve root was outlined. No vascular uptake was noted. Next, 1.5 cc of betamethasone followed by 0.5 cc of 1% lidocaine was then injected around the Left L3 and L4 spinal nerves. The patient tolerated the procedure well and there were no complications. The patient was taken to the post procedure recovery area in good condition. Vital signs remained stable before, during, and after the procedure. The patient was given oral and written follow-up instructions. The patient was given a follow up appointment with me in the near future. Glen Cade DO
== END 2019-10-17 19:44 | DRG 552 ==
LOC: JER 15:59 → JERBED 19:25 → J6S 23:21
PROVIDERS: ADMIT Internal Medicine
PROC: 3E0R33Z Introduction of Anti-inflammatory into Spinal Canal, Percutaneous Approach (ICD-10-PCS; principal; 2019-10-17 13:00)
DX: M47.26 Other spondylosis with radiculopathy, lumbar region (principal); T80.1XXA Vascular complications following infusion, transfusion and therapeutic injection, initial encounter; M54.16 Radiculopathy, lumbar region; M76.822 Posterior tibial tendinitis, left leg; M51.16 Intervertebral disc disorders with radiculopathy, lumbar region; K21.9 Gastro-esophageal reflux disease without esophagitis; I10 Essential (primary) hypertension; I80.8 Phlebitis and thrombophlebitis of other sites; F03.90 Unspecified dementia, unspecified severity, without behavioral disturbance, psychotic disturbance, mood disturbance, and anxiety; F41.8 Other specified anxiety disorders; K76.0 Fatty (change of) liver, not elsewhere classified; M48.061 Spinal stenosis, lumbar region without neurogenic claudication; D72.829 Elevated white blood cell count, unspecified; Y83.9 Surgical procedure, unspecified as the cause of abnormal reaction of the patient, or of later complication, without mention of misadventure at the time of the procedure
CPT/HCPCS: 36415; 72131-TC; 72158-TC; 76000-TC-FY; 76705-TC; 80053; 81003; 83735; 84100; 85025; 85610; 85730; 86850; 86900; 86901; 93005; 93010; 97116-GP; 97161-GP; 99281-25; 99283-25; A9579; J0131

== ENCOUNTER 2022-04-20 11:00 | Inpatient (IN) | payer OTHER ==
[2022-04-20 13:08] LABS: BASO % 0.3 % (0-2.0); EOS % 0.9 % (0-4.5); HEMATOCRIT 40.7 % (32.4-45.2); HEMOGLOBIN 13.7 GM/dL (10.7-15.3); LYMPH % 26.6 % (8-40); MCH 30.7 pg (25.7-33.7); MCHC 33.6 g/dl (32.0-36.0); MEAN CELL VOLUME 91.3 fl (80-96); MEAN PLT VOLUME 8.8 fl (7.5-11.1); MONO % 3.8 % (3.8-10.2); NEUT % 68.4 % (42.8-82.8); PLATELET COUNT 192 10^3/uL (134-434); RBC 4.45 M/mm3 (3.60-5.2); RDW 13.6 % (11.6-15.6); WHITE BLOOD COUNT 7.3 K/mm3 (4.0-10.0)
[2022-04-20 13:15] LABS: INR 0.93 (0.83-1.09); PROTHROMBIN TIME (PATIENT) 10.7 SEC (9.7-13.0)
[2022-04-20 13:17] LABS: ACTIVATED PTT 31.4 SECONDS (25.2-36.5)
[2022-04-20 13:31] LABS: ALBUMIN 4.3 g/dl (3.4-5.0); CALCIUM 9.7 mg/dL (8.5-10.1)
[2022-04-20 13:32] LABS: BLOOD UREA NITROGEN 16.9 mg/dL (7-18)
[2022-04-20 13:34] LABS: CREATININE 0.7 mg/dL (0.55-1.3)
[2022-04-20 13:36] LABS: BILIRUBIN,TOTAL 0.3 mg/dL (0.2-1); TOT PROT 8.5 g/dl (6.4-8.2)
[2022-04-20] MEDS ORDERED: ALBUTEROL SO4 2.5/IPRATROPIUM 0.5 INH SOL 3 ML VIAL.NEB. NEB PRN (21:48)
[2022-04-20] MEDS: BUDESONIDE/FORMETEROL FUMARATE 160/4.5 mcg INHALER IH SCH (22:53)
[2022-04-21 01:06] VITALS: BMI 24.4
[2022-04-21] MEDS: methylPREDNISolone NA SUCC 40 MG/1 ML VIAL IVPUSH SCH ×3 (01:16→17:28)
[2022-04-21 08:27] LABS: BASO % 0.2 % (0-2.0); HEMATOCRIT 39.8 % (32.4-45.2); HEMOGLOBIN 13.4 GM/dL (10.7-15.3); LYMPH % 20.3 % (8-40); MCH 30.7 pg (25.7-33.7); MCHC 33.6 g/dl (32.0-36.0); MEAN CELL VOLUME 91.6 fl (80-96); MEAN PLT VOLUME 9.1 fl (7.5-11.1); MONO % 0.8 % (3.8-10.2); NEUT % 78.7 % (42.8-82.8); PLATELET COUNT 186 10^3/uL (134-434); RBC 4.34 M/mm3 (3.60-5.2); RDW 13.9 % (11.6-15.6); WHITE BLOOD COUNT 5.6 K/mm3 (4.0-10.0)
[2022-04-21 08:35] LABS: BLOOD UREA NITROGEN 23.2 mg/dL (7-18)
[2022-04-21 08:36] LABS: ALBUMIN 3.8 g/dl (3.4-5.0); MAGNESIUM 2.4 mg/dL (1.8-2.4)
[2022-04-21 08:39] LABS: CREATININE 0.8 mg/dL (0.55-1.3); PHOSPHOROUS 3.2 mg/dL (2.5-4.9)
[2022-04-21 08:40] LABS: BILIRUBIN,TOTAL 0.5 mg/dL (0.2-1)
[2022-04-21 08:48] LABS: CHOLESTEROL 188 mg/dL (50-200)
[2022-04-21 08:49] LABS: LDL CHOLESTEROL (ONLY SJRH) 116 mg/dL (5-100); TRIGLYCERIDES 65 mg/dL (0-150)
[2022-04-21 08:51] LABS: HDL CHOLESTEROL 65 mg/dL (40-60)
[2022-04-21] MEDS: ENOXAPARIN NA (PORCINE) 40 MG/0.4 ML DISP.SYRIN SQ SCH (10:52)
[2022-04-21] MEDS: BUDESONIDE/FORMETEROL FUMARATE 160/4.5 mcg INHALER IH SCH ×2 (10:52→22:28)
[2022-04-21] MEDS: LIPASE/PROTEASE/AMYLASE 36,000 UNIT CAPSULE PO SCH ×2 (13:55→17:28)
[2022-04-21] MEDS ORDERED: MECLIZINE HCL 12.5 MG TABLET PO PRN (14:12)
[2022-04-21] MEDS: GABAPENTIN 100 MG CAPSULE PO SCH (22:27)
[2022-04-21] MEDS: CYCLOBENZAPRINE HCL 5 MG TABLET PO SCH (22:27)
[2022-04-21] MEDS: ATORVASTATIN CA 10 MG TABLET (FP) PO SCH (22:27)
[2022-04-21] MEDS: LIDOCAINE PATCH REMOVAL MC SCH (22:28)
[2022-04-22] MEDS: methylPREDNISolone NA SUCC 40 MG/1 ML VIAL IVPUSH SCH ×3 (01:54→17:08)
[2022-04-22] MEDS: LIPASE/PROTEASE/AMYLASE 36,000 UNIT CAPSULE PO SCH ×3 (08:01→17:08)
[2022-04-22] MEDS: ENOXAPARIN NA (PORCINE) 40 MG/0.4 ML DISP.SYRIN SQ SCH (09:49)
[2022-04-22] MEDS: ASCORBIC ACID 500 MG TABLET (FP) PO SCH (09:50)
[2022-04-22] MEDS: SERTRALINE HCL 25 MG TABLET (FP) PO SCH (09:50)
[2022-04-22] MEDS: BUDESONIDE/FORMETEROL FUMARATE 160/4.5 mcg INHALER IH SCH ×2 (09:50→22:11)
[2022-04-22] MEDS: OMEGA-3 ACID ETHYL ESTERS (FATTY-ACIDS) 1 GM CAPSULE (FP) PO SCH (09:50)
[2022-04-22] MEDS: GABAPENTIN 100 MG CAPSULE PO SCH ×2 (09:50→22:10)
[2022-04-22] MEDS: LIDOCAINE 5% TOPICAL PATCH TP SCH (10:15)
[2022-04-22] MEDS: ATORVASTATIN CA 10 MG TABLET (FP) PO SCH (22:10)
[2022-04-22] MEDS: CYCLOBENZAPRINE HCL 5 MG TABLET PO SCH (22:10)
[2022-04-22] MEDS: LIDOCAINE PATCH REMOVAL MC SCH (22:11)
[2022-04-23] MEDS: methylPREDNISolone NA SUCC 40 MG/1 ML VIAL IVPUSH SCH ×3 (01:42→17:52)
[2022-04-23] MEDS: LIPASE/PROTEASE/AMYLASE 36,000 UNIT CAPSULE PO SCH ×3 (08:22→17:52)
[2022-04-23] MEDS: OMEGA-3 ACID ETHYL ESTERS (FATTY-ACIDS) 1 GM CAPSULE (FP) PO SCH (09:15)
[2022-04-23] MEDS: ENOXAPARIN NA (PORCINE) 40 MG/0.4 ML DISP.SYRIN SQ SCH (09:15)
[2022-04-23] MEDS: ASCORBIC ACID 500 MG TABLET (FP) PO SCH (09:15)
[2022-04-23] MEDS: GABAPENTIN 100 MG CAPSULE PO SCH ×2 (09:15→21:06)
[2022-04-23] MEDS: SERTRALINE HCL 25 MG TABLET (FP) PO SCH (09:15)
[2022-04-23] MEDS: LIDOCAINE 5% TOPICAL PATCH TP SCH (09:17)
[2022-04-23] MEDS: BUDESONIDE/FORMETEROL FUMARATE 160/4.5 mcg INHALER IH SCH ×2 (09:17→21:06)
[2022-04-23] MEDS: CYCLOBENZAPRINE HCL 5 MG TABLET PO SCH (21:06)
[2022-04-23] MEDS: ATORVASTATIN CA 10 MG TABLET (FP) PO SCH (21:06)
[2022-04-23] MEDS: LIDOCAINE PATCH REMOVAL MC SCH (21:06)
[2022-04-24 01:01] VITALS: RESP 18
[2022-04-24] MEDS: methylPREDNISolone NA SUCC 40 MG/1 ML VIAL IVPUSH SCH ×2 (01:51→09:23)
[2022-04-24] MEDS: LIPASE/PROTEASE/AMYLASE 36,000 UNIT CAPSULE PO SCH ×3 (08:23→17:14)
[2022-04-24] MEDS: GABAPENTIN 100 MG CAPSULE PO SCH ×2 (09:22→22:07)
[2022-04-24] MEDS: PANTOPRAZOLE 40 MG TABLET PO SCH (09:23)
[2022-04-24] MEDS: SERTRALINE HCL 25 MG TABLET (FP) PO SCH (09:23)
[2022-04-24] MEDS: ENOXAPARIN NA (PORCINE) 40 MG/0.4 ML DISP.SYRIN SQ SCH (09:23)
[2022-04-24] MEDS: BUDESONIDE/FORMETEROL FUMARATE 160/4.5 mcg INHALER IH SCH ×2 (09:23→22:06)
[2022-04-24] MEDS: OMEGA-3 ACID ETHYL ESTERS (FATTY-ACIDS) 1 GM CAPSULE (FP) PO SCH (09:23)
[2022-04-24] MEDS: ASCORBIC ACID 500 MG TABLET (FP) PO SCH (09:23)
[2022-04-24] MEDS: LIDOCAINE 5% TOPICAL PATCH TP SCH (10:02)
[2022-04-24 10:07] LABS: BASO % 0.1 % (0-2.0); HEMATOCRIT 42.2 % (32.4-45.2); HEMOGLOBIN 13.9 GM/dL (10.7-15.3); LYMPH % 14.9 % (8-40); MCH 30.3 pg (25.7-33.7); MCHC 32.9 g/dl (32.0-36.0); MEAN CELL VOLUME 91.9 fl (80-96); MEAN PLT VOLUME 9.8 fl (7.5-11.1); MONO % 1.8 % (3.8-10.2); NEUT % 83.2 % (42.8-82.8); PLATELET COUNT 208 10^3/uL (134-434); RBC 4.59 M/mm3 (3.60-5.2); RDW 13.9 % (11.6-15.6); WHITE BLOOD COUNT 8.5 K/mm3 (4.0-10.0)
[2022-04-24 10:38] LABS: ALBUMIN 3.9 g/dl (3.4-5.0); BLOOD UREA NITROGEN 29.8 mg/dL (7-18); MAGNESIUM 2.9 mg/dL (1.8-2.4)
[2022-04-24 10:41] LABS: CREATININE 0.9 mg/dL (0.55-1.3)
[2022-04-24 10:42] LABS: BILIRUBIN,TOTAL 0.6 mg/dL (0.2-1)
[2022-04-24 10:43] LABS: TOT PROT 8.1 g/dl (6.4-8.2)
[2022-04-24] MEDS: predniSONE 20 MG TABLET (UD) PO SCH (12:44)
[2022-04-24] MEDS: CYCLOBENZAPRINE HCL 5 MG TABLET PO SCH (22:07)
[2022-04-24] MEDS: ATORVASTATIN CA 10 MG TABLET (FP) PO SCH (22:07)
[2022-04-24] MEDS: LIDOCAINE PATCH REMOVAL MC SCH (22:08)
[2022-04-25] MEDS: LIPASE/PROTEASE/AMYLASE 36,000 UNIT CAPSULE PO SCH ×2 (09:00→12:08)
[2022-04-25] MEDS: OMEGA-3 ACID ETHYL ESTERS (FATTY-ACIDS) 1 GM CAPSULE (FP) PO SCH (09:37)
[2022-04-25] MEDS: ENOXAPARIN NA (PORCINE) 40 MG/0.4 ML DISP.SYRIN SQ SCH (09:37)
[2022-04-25] MEDS: GABAPENTIN 100 MG CAPSULE PO SCH (09:37)
[2022-04-25] MEDS: SERTRALINE HCL 25 MG TABLET (FP) PO SCH (09:38)
[2022-04-25] MEDS: predniSONE 20 MG TABLET (UD) PO SCH (09:38)
[2022-04-25] MEDS: PANTOPRAZOLE 40 MG TABLET PO SCH (09:38)
[2022-04-25] MEDS: ASCORBIC ACID 500 MG TABLET (FP) PO SCH (09:38)
[2022-04-25] MEDS: LIDOCAINE 5% TOPICAL PATCH TP SCH (09:39)
[2022-04-25] MEDS: BUDESONIDE/FORMETEROL FUMARATE 160/4.5 mcg INHALER IH SCH (09:39)
[2022-04-25] MEDS ORDERED: SODIUM CHLORIDE 500 ML IV STA (11:53)
[2022-04-25] MEDS ORDERED: MECLIZINE HCL 25 MG TABLET (FP) PO SCH (12:00)
[2022-04-25 13:29] VITALS: BP 136/67; PULSE 90; TEMP 98.2
== END 2022-04-25 16:36 | disposition home or self-care (01) | DRG 191 ==
LOC: JER 11:00 → JERBED 17:24 → J5S 21:26
PROVIDERS: ADMIT Internal Medicine; ATTEND Nurse Practitioner Family
DX: J44.1 Chronic obstructive pulmonary disease with (acute) exacerbation (principal); J98.11 Atelectasis; G61.0 Guillain-Barre syndrome; J84.9 Interstitial pulmonary disease, unspecified; I10 Essential (primary) hypertension; E78.5 Hyperlipidemia, unspecified; M54.16 Radiculopathy, lumbar region; K21.9 Gastro-esophageal reflux disease without esophagitis; M81.0 Age-related osteoporosis without current pathological fracture; R42 Dizziness and giddiness; E04.1 Nontoxic single thyroid nodule
CPT/HCPCS: 36415; 71045-TC-FY; 71275-TC; 80053; 80061; 83735; 83880; 84100; 84443; 84484; 85025; 85610; 85730; 93005; 93010; 93306-TC; 94010; 94761; 99285-25; C9803-CS; Q9967; U0003; U0005

== ENCOUNTER 2025-05-26 11:40 | Observation (INO) | payer BC, OTHER ==
[2025-05-26] MEDS ORDERED: IBUPROFEN 400 MG TABLET (FP) PO ONE (14:06)
[2025-05-26] MEDS ORDERED: CEFTRIAXONE 1 GM/50 ML BAG ONE (14:06)
[2025-05-26] MEDS: IBUPROFEN 400 MG TABLET (FP) PO ONE (14:24)
[2025-05-26] MEDS ORDERED: ACETAMINOPHEN 325 MG TABLET (FP) PO PRN (14:24)
[2025-05-26] MEDS: SODIUM CHLORIDE 0.9% 1000 ML INFUS.BAG IV ONE (14:24)
[2025-05-26] MEDS: CEFTRIAXONE 1 GM in DEXTROSE 5%-WATER - 100 ML IVPB ONE (14:24)
[2025-05-26 14:26] LABS: MCHC 32.7 g/dl (32.2-35.5); MEAN CELL VOLUME 91.0 fl (79.4-94.8); MEAN PLT VOLUME 10.9 fl (9.4-12.3); RDW 12.9 % (12.5-17.0)
[2025-05-26 14:44] LABS: GLUCOSE,RANDOM 104.0 mg/dL (74-106)
[2025-05-26 14:45] LABS: TOT PROT 7.7 g/dl (6.4-8.2)
[2025-05-26 14:46] LABS: CO2 25.0 mmol/L (21-32)
[2025-05-26 14:47] LABS: ALK PHOS 64.0 U/L (40-150)
[2025-05-26 14:50] LABS: CREATININE 0.74 mg/dL (0.55-1.3); SGOT/AST 32.0 U/L (5-34); SGPT/ALT 25.0 U/L (0-55)
[2025-05-26 15:01] LABS: URINE APPEARANCE CLEAR; URINE BILIRUBIN NEGATIVE (NEGATIVE); URINE COLOR YELLOW; URINE GLUCOSE (UA) NEGATIVE (NEGATIVE); URINE KETONE NEGATIVE (NEGATIVE); URINE LEUK ESTERASE NEGATIVE (NEGATIVE); URINE NITRITE NEGATIVE (NEGATIVE); URINE PROTEIN NEGATIVE (NEGATIVE); URINE UROBILINOGEN 0.2 mg/dL (0.2-1.0)
[2025-05-26] MEDS ORDERED: AZITHROMYCIN IVPB 500 MG/250 ML BAG IVPB ONE (15:08)
[2025-05-26] MEDS: AZITHROMYCIN IVPB 500 MG in DEXTROSE 5%-WATER - 250 ML IVPB ONE (15:10)
[2025-05-26 16:11] LABS: HCV DIAGNOSTIC IN-HOUSE W/RFLX NON-REACTIVE (NONREACTIVE); HIV INTERPRETATION NEGATIVE (NEGATIVE)
[2025-05-26] MEDS: SODIUM CHLORIDE 1,000 ML IV SCH (18:15)
[2025-05-26] MEDS: LIPASE/PROTEASE/AMYLASE 36,000 UNIT CAPSULE PO SCH (18:15)
[2025-05-26 18:28] VITALS: BMI 20.5
[2025-05-26] MEDS: ARTIFICIAL TEARS OPHTHALMIC DROPS OU SCH (18:52)
[2025-05-26] MEDS ORDERED: ACETAMINOPHEN 500 MG TABLET (FP) PO PRN (20:39)
[2025-05-26] MEDS: ATORVASTATIN CA 10 MG TABLET (FP) PO SCH (21:48)
[2025-05-26] MEDS: BUDESONIDE/FORMETEROL FUMARATE 80/4.5 mcg INHALER IH SCH (21:53)
[2025-05-26] MEDS: LATANOPROST 0.005% OPHTH SOLN 2.5ML BOTTLE OU SCH (23:38)
[2025-05-27] MEDS: PANTOPRAZOLE SODIUM 40 MG VIAL IVPUSH SCH (09:28)
[2025-05-27] MEDS ORDERED: AZITHROMYCIN 500 MG TABLET PO SCH (10:00)
[2025-05-27] MEDS ORDERED: CEFTRIAXONE 1 GM in DEXTROSE 5%-WATER - 50 ML IVPB SCH (10:00)
[2025-05-27 10:36] LABS: ABSOLUTE IMMATURE GRANULOCYTES 0.02 x10^3/uL (0.0-0.031); BASOPHILS # 0.01 x10^3/uL (0.01-0.08); EOSINOPHIL % 0.3 % (0.7-5.8); EOSINOPHILS # 0.02 x10^3/uL (0.04-0.36); MCHC 32.5 g/dl (32.2-35.5); MEAN CELL VOLUME 92.5 fl (79.4-94.8); MEAN PLT VOLUME 11.3 fl (9.4-12.3); MONOCYTE # 0.35 x10^3/uL (0.24-0.86); MONOCYTE % 4.9 % (4.7-12.5); RDW 13.2 % (12.5-17.0)
[2025-05-27] MEDS: ENOXAPARIN NA (PORCINE) 40 MG/0.4 ML DISP.SYRIN SQ SCH (10:49)
[2025-05-27 11:30] LABS: GLUCOSE,RANDOM 134.0 mg/dL (74-106); TOT PROT 7.1 g/dl (6.4-8.2)
[2025-05-27 11:31] LABS: CO2 22.0 mmol/L (21-32)
[2025-05-27 11:33] LABS: ALK PHOS 58.0 U/L (40-150)
[2025-05-27 11:35] LABS: SGOT/AST 32.0 U/L (5-34); SGPT/ALT 23.0 U/L (0-55)
[2025-05-27 11:36] LABS: CREATININE 0.63 mg/dL (0.55-1.3)
[2025-05-27] MEDS: ACETAMINOPHEN 500 MG TABLET (FP) PO SCH (13:09)
[2025-05-27] MEDS ORDERED: ONDANSETRON 4 MG/2 ML VIAL IVPUSH PRN ×2 (16:11→16:13)
[2025-05-27] MEDS: LACTATED RINGERS SOLUTION 1,000 ML/1,000 ML INFUS.BAG IV SCH (17:15)
[2025-05-27] MEDS: MELATONIN 5 MG TABLETS PO PRN (21:19)
[2025-05-28] MEDS: KETOROLAC TROMETHAMINE 15 MG/ML VIAL IVPUSH ONE (04:30)
[2025-05-28 08:59] LABS: MCHC 32.9 g/dl (32.2-35.5); MEAN CELL VOLUME 91.5 fl (79.4-94.8); MEAN PLT VOLUME 10.7 fl (9.4-12.3); RDW 13.0 % (12.5-17.0)
[2025-05-28] MEDS: GABAPENTIN 100 MG CAPSULE PO SCH (09:22)
[2025-05-28] MEDS: SERTRALINE HCL 25 MG TABLET (FP) PO SCH (09:22)
[2025-05-28 09:32] LABS: CO2 20.0 mmol/L (21-32)
[2025-05-28 09:36] LABS: CREATININE 0.63 mg/dL (0.55-1.3)
[2025-05-28 09:41] LABS: GLUCOSE,RANDOM 197.0 mg/dL (74-106)
[2025-05-28] MEDS ORDERED: LORazepam 2 MG/ML SDV VIAL ONE (11:34)
[2025-05-28] MEDS: LORazepam 2 MG/ML SDV VIAL IVPUSH ONE (11:40)
[2025-05-29 03:12] VITALS: RESP 18
[2025-05-29 09:10] LABS: ABSOLUTE IMMATURE GRANULOCYTES 0.01 x10^3/uL (0.0-0.031); BASOPHILS # 0.02 x10^3/uL (0.01-0.08); EOSINOPHIL % 1.8 % (0.7-5.8); EOSINOPHILS # 0.13 x10^3/uL (0.04-0.36); MCHC 32.6 g/dl (32.2-35.5); MEAN CELL VOLUME 91.4 fl (79.4-94.8); MEAN PLT VOLUME 10.9 fl (9.4-12.3); MONOCYTE # 0.27 x10^3/uL (0.24-0.86); MONOCYTE % 3.8 % (4.7-12.5); RDW 13.0 % (12.5-17.0)
[2025-05-29 09:44] LABS: GLUCOSE,RANDOM 131.0 mg/dL (74-106)
[2025-05-29 09:45] LABS: CO2 20.0 mmol/L (21-32)
[2025-05-29 09:50] LABS: CREATININE 0.62 mg/dL (0.55-1.3)
[2025-05-29 14:06] VITALS: BP 132/73; PULSE 84; TEMP 97.9
== END 2025-05-29 14:09 | disposition home or self-care (01) ==
LOC: JER 11:40 → JERBED 14:01 → J6S 17:54
PROVIDERS: ADMIT Internal Medicine; ATTEND Internal Medicine
PROC: 3E03329 Introduction of Other Anti-infective into Peripheral Vein, Percutaneous Approach (ICD-10-PCS; principal; 2025-05-26)
PROC: 3E023GC Introduction of Other Therapeutic Substance into Muscle, Percutaneous Approach (ICD-10-PCS; 2025-05-26)
PROC: 3E03329 Introduction of Other Anti-infective into Peripheral Vein, Percutaneous Approach (ICD-10-PCS; 2025-05-26)
PROC: 3E033GC Introduction of Other Therapeutic Substance into Peripheral Vein, Percutaneous Approach (ICD-10-PCS; 2025-05-26)
PROC: 3E0337Z Introduction of Electrolytic and Water Balance Substance into Peripheral Vein, Percutaneous Approach (ICD-10-PCS; 2025-05-26)
PROC: 3E0333Z Introduction of Anti-inflammatory into Peripheral Vein, Percutaneous Approach (ICD-10-PCS; 2025-05-26)
DX: K29.70 Gastritis, unspecified, without bleeding (principal); K52.9 Noninfective gastroenteritis and colitis, unspecified; J44.9 Chronic obstructive pulmonary disease, unspecified; K21.9 Gastro-esophageal reflux disease without esophagitis; I10 Essential (primary) hypertension; J98.11 Atelectasis; E78.5 Hyperlipidemia, unspecified; G61.0 Guillain-Barre syndrome; K86.89 Other specified diseases of pancreas; F32.9 Major depressive disorder, single episode, unspecified; G62.9 Polyneuropathy, unspecified; M54.16 Radiculopathy, lumbar region; R32 Unspecified urinary incontinence; F41.9 Anxiety disorder, unspecified
CPT/HCPCS: 36415; 71045-TC-FY; 71250-TC; 74177-TC; 80048; 80053; 81003; 83690; 83735; 84100; 84484; 85025; 85027; 86480; 86803; 87040; 87086; 87389; 87637-QW; 87899; 93005; 93010; 99285-25; G0378; Q9967